=== PATIENT | female | born 1960 | race Caucasian/White ===

== ENCOUNTER → 2021-07-05 | Outpatient (CLI) | payer BC ==
[2021-07-05 14:47] VITALS: BP 148/94; PULSE 111; RESP 16; TEMP 98.7; BMI 41.1
--- NOTE | 2021-07-05 14:54 | P.HPBAR ---
Bariatric H&P - History & Physicial H&P Date: 07/05/21 History & Physicial: Visit/CC: Patient initial contact: Initial weight: Initial weight in pounds: Height: Initial BMI: Last weight: Current weight: Current weight in pounds: Current BMI: [place] body weight (based on NIH guidelines): Excess body weight loss: The patient is a 61 year-old F who presents for Bariatric Assessment. DATE OF SERVICE: 07/05/2021 REASON FOR CONSULTATION: Initial bariatric evaluation. HISTORY OF PRESENT ILLNESS: Sabina Kirkland is a 61-year-old female who comes with lifelong morbid obesity. She presents for the first time in consultation. She is looking into the sleeve. Her sister is at bedside who had the gastric bypass and reports family history of morbid obesity. She reports going through bariatric process in [place] in 2013. She was looking into the gastric band at that time but now has changed her mind. As a result of her morbid obesity, she has developed hypertensive heart disese and osteoarthritis. At height of 5 feet 8 inches, her ideal body weight is 163 pounds. Her highest weight is 270 pounds, body mass index 41.1 She comes in 270 pounds. Her body mass index is 41.1. She is 107 pounds overweight. PAST MEDICAL HISTORY: 1. Morbid obesity due to excess calories, BMI 41.1 2. Hypertensive heart disease 3. Osteoarthritis of the back 4. Depressive disorder 5. Hyperlipidemia 6. Iron deficiency 7. Gastroesophageal reflux disease 8. Neuropathy PAST SURGICAL HISTORY: 1. No abdominal surgeries HOME MEDICATIONS: Home Medications Medication Instructions Recorded Confirmed Amlodipine Besylate/Valsartan 1 each PO DAILY 07/05/21 07/26/21 [Amlodipine-Valsartan 10-160 mg] Bifidobacterium Infantis [Align] 4 mg PO DAILY 07/05/21 07/26/21 Cyclobenzaprine [Flexeril] 10 mg PO TID 07/05/21 07/26/21 DULoxetine HCL [Cymbalta] 60 mg PO DAILY 07/05/21 07/26/21 Esomeprazole Magnesium [NexIUM 20 mg PO DAILY 07/05/21 07/26/21 24Hr] Gabapentin 300 mg PO TID 07/05/21 07/26/21 Hydrochlorothiazide 12.5 mg PO DAILY 07/05/21 07/26/21 [hydroCHLOROthiazide] Ibuprofen [Advil] 200 mg PO Q8HR PRN 07/05/21 07/26/21 Nystatin 1 applic TOPICAL DAILY 07/05/21 07/26/21 Pravastatin Sodium [Pravachol] 20 mg PO DAILY 07/05/21 07/26/21 Ergocalciferol [Vitamin D2 (1250 50,000 unit PO WE 07/13/21 07/26/21 Mcg = 03824 Iu)] Ferrous Sulfate [Feosol] 325 mg PO DAILY 07/26/21 07/26/21 Vitamin B Complex 1 each PO DAILY 07/26/21 07/26/21 ALLERGIES: Allergies Allergy/AdvReac Type Severity Reaction Status Date / Time No Known Allergies Allergy Verified 07/26/21 15:16 SOCIAL HISTORY: Denies tobacco use. FAMILY HISTORY: No family history of ulcerative colitis disease or Crohn's disease. Family history of morbid obesity. No lupus in the family. No reports of stomach or esophageal cancer. She reports her grandmother had obesity. REVIEW OF ORGAN SYSTEMS: CONSTITUTIONAL: At height of 5 feet 8 inches, her ideal body weight is 163 pounds. Her highest weight is 270 pounds, body mass index 41.1 She comes in 270 pounds. Her body mass index is 41.1. She is 107 pounds overweight. HEENT: Denies any active troubles with vision or hearing. ENDOCRINE: Denies diabetes. Denies hypothyroidism. CARDIOVASCULAR: Denies past reports of palpitations or heart attacks or chest pain. Has hypertensive heart disease. Has hyperlipidemia. RESPIRATORY: Has daytime somnolence and snores. GASTROINTESTINAL: Denies any bright red blood per rectum. No diarrhea. No constipation. Has gastroesophageal reflux disease. GENITOURINARY: Denies bladder urgency. No recent blood in urine MUSCULOSKELETAL: Has lower back pain and joint pain. Denies history of bilateral lower extremity edema. Osteoarthritis of the lower back. NEURO: Has chronic migraines. No seizure disorders. PSYCH: Has depression. No suicidal ideation. RHEUMATOLOGIC: No lupus. No rheumatoid arthritis. HEMATOLOGIC: Denies any abnormal bleeding or bruising. Denies past history of DVTs. SKIN: No rash. No skin cancer. PHYSICAL EXAM: VITAL SIGNS: Height 5 foot 8 inches, weight 270 pounds. BMI 41.1 Vital Signs Temp 98.7 F 07/05/21 14:43 Pulse 111 H 07/05/21 14:43 Resp 16 07/05/21 14:43 BP 148/94 07/05/21 14:43 Pulse Ox GENERAL: Well-developed in no acute distress. HEENT: No scleral icterus. Extraocular movements grossly intact. Hears conversational speech. No nasal drainage. NECK: Supple without lymphadenopathy. CHEST: Nonlabored respirations with equal bilateral excursions. CARDIOVASCULAR: Tachycardia. Distal 2+ pulses. ABDOMEN: Obese, soft, nontender, nondistended. MUSCULOSKELETAL: No clubbing, cyanosis. NEURO: No focal or lateralizing signs. Cranial nerves 2 through 12 grossly within normal limits. PSYCH: Appropriate affect. Alert and oriented to person, place and time. SKIN: Good skin turgor. Well perfused. ASSESSMENT: 1. Morbid obesity due to excess calories, BMI 41.1 2. Hypertensive heart disease 3. Osteoarthritis of the back 4. Depressive disorder 5. Hyperlipidemia 6. Iron deficiency 7. Gastroesophageal reflux disease 8. Neuropathy PLAN: 1. Surgical options including a band, gastric bypass, sleeve gastrectomy were described in detail. Alternatives such as gastric balloon including duodenal switch were described. 2. The [place] bariatric surgical collaborative data and outcomes calculator were described with surgical options deferred. 3. Recommend a bariatric metabolic panel to evaluate for micro- including macronutrient deficiencies. 4. For history of daytime somnolence, recommend evaluation and treatment for sleep apnea. 5. Dietary surveillance and counseling was reviewed. Increased protein intake over 65 grams daily advised. 6. Will need cardiac risk assessment. 7. Recommend medical risk assessment. 8. Psych assessment per insurance guidelines. 9. Recommend upper endoscopy. 10. Recommend 12-lead EKG. 11. Recommend urine nicotine testing pre-op 12. Recommend urine drug screen Thank you for this consultation. Results - Labs 07/05/21 15:48 07/05/21 15:48 Bariatric Checklist Checklist: Plan: Checklist: EGD: 1. Hiatal hernia: 2. H. Pylori: HgbA1c: Vitamin D: Smoking: Primary care physician referral: Psychiatry clearance: Cardiology clearance: Sleep study: Diet journal: VTE risk score: VTE risk level: Rehab needs at discharge:
[2021-07-05 17:02] LABS: INR 0.9 (<1.2); Partial Thromboplastin Time 23.7 sec (22.0-30.0); Prothrombin Time 9.7 sec (9.0-12.0)
[2021-07-06 00:08] LABS: Chol/HDL Ratio 4.06 Ratio; LDL Cholesterol,Calculated 149.3 mg/dL (0.0-131.0); Prealbumin 20.7 mg/dL (18.0-42.0)
[2021-07-06 00:55] LABS: HCT 35.6 % (37.2-46.3); HGB 10.4 g/dL (12.0-15.0); MCH 24.4 pg (27.0-32.0); MCHC 29.2 g/dL (32.0-37.0); MCV 83.6 fL (80.0-97.0); Mean Platelet Volume 11.5 fL (9.5-12.2); NRBC Per 100 WBC 0 /100 WBCS (0.0-0.0); Platelet Count 508 X 10*3/uL (140-440); RBC 4.26 X 10*6/uL (4.10-5.20); RDW 17.5 % (11.5-14.5); WBC 10.21 X 10*3/uL (4.50-10.00)
[2021-07-06 02:28] LABS: Ferritin 8.1 ng/mL (10.0-291.0); Magnesium 2.2 mg/dL (1.5-2.4)
[2021-07-06 02:29] LABS: % Iron Saturation 6.04 (12.00-45.00); ALT 42 U/L (8-44); AST 27 U/L (13-35); African American GFR (CKD) 89.4 (60.0-200.0); Albumin 4.1 g/dL (3.8-4.9); Albumin/Globulin Ratio 1.62 (1.60-3.17); Alkaline Phosphatase 110 U/L (41-126); BUN/Creat Ratio 15.56 Ratio (12.00-20.00); Blood Urea Nitrogen 12.7 mg/dL (9.0-27.0); Calcium 9.4 mg/dL (8.7-10.3); Carbon Dioxide 23.1 mmol/L (20.0-27.5); Chloride 100 mmol/L (96-109); Globulin 2.5 g/dL (1.6-3.3); Glucose 106 mg/dL (70-110); Iron 28 ug/dL (50-170); Non-African American GFR(CKD) 77.2 (60.0-200.0); Phosphorus 3.4 mg/dL (2.4-5.1); Potassium 4.2 mmol/L (3.5-5.5); Sodium 140 mmol/L (135-145); Total Bilirubin <0.15 mg/dL (0.30-1.20); Total Iron Binding Capacity 470 ug/dL (228-460); Total Protein 6.6 g/dL (6.2-8.2)
[2021-07-06 12:58] LABS: Zinc, Serum 58 ug/dL (60-130)
[2021-07-07 08:32] LABS: Vitamin A 49 ug/dL (38-106)
[2021-07-07 14:34] LABS: Vit B1(Thiamine) 92 ug/L (38-122)
[2021-07-11 14:50] LABS: Selenium 160 mcg/L (63-160)
== END ==
LOC: BARWHC3 14:13
PROVIDERS: ATTEND Surgery Plastic and Reconstructive Surgery
DX: E66.01 Morbid (severe) obesity due to excess calories (principal); I11.9 Hypertensive heart disease without heart failure; M47.9 Spondylosis, unspecified; F32.A Depression, unspecified; E78.5 Hyperlipidemia, unspecified; E61.1 Iron deficiency; K21.9 Gastro-esophageal reflux disease without esophagitis; G62.9 Polyneuropathy, unspecified; Z68.41 Body mass index [BMI] 40.0-44.9, adult
CPT/HCPCS: 80053; 80061; 82306; 82525; 82607; 82728; 82746; 83036; 83540; 83550; 83735; 83970; 84100; 84134; 84255; 84425; 84443; 84590; 84630; 85027; 85610; 85730; 93005; 99203

== ENCOUNTER 2021-10-02 08:16 | Day surgery (SDC) | payer BC ==
[2021-09-28 15:03] VITALS: BMI 39.1
--- NOTE | 2021-10-02 07:40 | P.GSHP ---
History of Present Illness H&P Date: 10/02/21 CHIEF COMPLAINT: GERD and colon screen HISTORY OF PRESENT ILLNESS: The patient is a 61-year-old female who presents with gastroesophageal reflux disease and need for colon screen. Upper and lower endoscopy were offered for further evaluation and management. PAST MEDICAL HISTORY: Please see list. PAST SURGICAL HISTORY: Please see list. MEDICATIONS: Please see list. ALLERGIES: Please see list. SOCIAL HISTORY: No illicit drug use FAMILY HISTORY: No reports of Crohn disease or ulcerative colitis. REVIEW OF ORGAN SYSTEMS: CONSTITUTIONAL: No reports of fevers or chills. GI: Denies any blood in stools or constipation. PHYSICAL EXAM: VITAL SIGNS: Stable GENERAL: Well-developed pleasant in no acute distress. HEENT: No scleral icterus. Extraocular movements grossly intact. Moist buccal mucosa. NECK: Supple without lymphadenopathy. CHEST: Unlabored respirations. Equal bilateral excursions. CARDIOVASCULAR: Regular rate and rhythm. Distal 2+ pulses. ABDOMEN: Soft, nondistended. MUSCULOSKELETAL: No clubbing, cyanosis, or edema. ASSESSMENT: 1. Gastroesophageal reflux disease 2. Colon screen. PLAN: 1. Recommend proceeding with an upper and lower endoscopy Past Medical History Past Medical History: Fibromyalgia, GERD/Reflux, Hyperlipidemia, Hypertension, Osteoarthritis (OA) Additional Past Medical History / Comment(s): ANEMIA, History of Any Multi-Drug Resistant Organisms: None Reported Past Surgical History: Adenoidectomy, Cholecystectomy, Hysterectomy, Orthopedic Surgery, Tonsillectomy Additional Past Surgical History / Comment(s): RT SHOULDER surgery for bone spurs, RT KNEE arthroscopy, COLONOSCOPY Past Anesthesia/Blood Transfusion Reactions: Motion Sickness Smoking Status: Former smoker - Past Family History Mother Family Medical History: Cancer Additional Family Medical History / Comment(s): lung Medications and Allergies Home Medications Medication Instructions Recorded Confirmed Type Amlodipine Besylate/Valsartan 1 each PO DAILY 07/05/21 09/28/21 History [Amlodipine-Valsartan 10-160 mg] Cyclobenzaprine [Flexeril] 10 mg PO TID PRN 07/05/21 09/28/21 History DULoxetine HCL [Cymbalta] 60 mg PO DAILY 07/05/21 09/28/21 History Esomeprazole Magnesium [NexIUM 20 mg PO DAILY 07/05/21 09/28/21 History 24Hr] Gabapentin 300 mg PO TID 07/05/21 09/28/21 History Hydrochlorothiazide 12.5 mg PO DAILY PRN 07/05/21 09/28/21 History [hydroCHLOROthiazide] Ibuprofen [Advil] 200 mg PO Q8HR PRN 07/05/21 09/28/21 History Nystatin 1 applic TOPICAL DAILY PRN 07/05/21 09/28/21 History Pravastatin Sodium [Pravachol] 20 mg PO HS 07/05/21 09/28/21 History Ergocalciferol [Vitamin D2 (1250 50,000 unit PO WE 07/13/21 09/28/21 History Mcg = 47166 Iu)] Ferrous Sulfate [Feosol] 325 mg PO DAILY 07/26/21 09/28/21 History Vitamin B Complex 1 each PO DAILY 07/26/21 09/28/21 History Allergies Allergy/AdvReac Type Severity Reaction Status Date / Time No Known Allergies Allergy Verified 09/28/21 14:49
[2021-10-02 08:37] VITALS: TEMP 96.5
[2021-10-02] MEDS ORDERED: LACTATED RINGERS 1,000 ML IV ONE (08:50)
[2021-10-02] MEDS ORDERED: LIDOCAINE 1% (10MG/ML) FOR IV START INTRADERMA ONE (08:51)
[2021-10-02] MEDS ORDERED: LACTATED RINGERS 1,000 ML IV SCH (08:51)
[2021-10-02] MEDS ORDERED: PROPOFOL 10 MG/ML 20 ML VIAL IV ONE (09:09)
[2021-10-02] MEDS ORDERED: MIDAZOLAM 2 MG/2 ML VIAL ONE (09:09)
--- NOTE | 2021-10-02 09:26 | P.PCN ---
Date of Procedure: 10/02/21 Description of Procedure: PREOPERATIVE DIAGNOSIS: Gastroesophageal reflux disease. Morbid obesity. POSTOPERATIVE DIAGNOSIS: Gastroesophageal reflux disease with esophagitis Morbid obesity. Gastritis. Diaphragmatic hiatal hernia OPERATION: Esophagogastroduodenoscopy with biopsies along antrum, GE junction, duodenum SURGEON: Dariela Manzanares MD ANESTHESIA: MAC. INDICATIONS: The patient is a 61-year-old female who presents with reflux disease. Benefits and risks of the procedure were described. Informed consent was obtained. DESCRIPTION: The patient was brought into the endoscopy suite and laid in the left lateral decubitus position. An Olympus gastroscope was passed along the posterior oropha rynx down to the distal esophagus where the squamocolumnar junction was encountered at 36 cm from the incisors. The stomach was entered and no bile reflux was found. Additional findings are listed below. Biopsies with cold forceps were obtained of the antrum. The first through third portion of the duodenum was examined. Retroflexion of the scope confirmed Hill grade 3 lower esophageal valve. The squamocolumnar junction demonstrated LA grade C erosive esophagitis. The stomach was desufflated. The patient tolerated the procedure well. FINDINGS: Squamocolumnar junction 36 cm from the incisors. Diaphragmatic hiatus at 38 cm. Hiatal hernia, 2 cm Hill grade 3 lower esophageal valve. LA grade C erosive esophagitis with biopsies obtained at GE junction Cold biopsies obtained duodenum for celiac disease Chronic gastritis with biopsies obtained RECOMMENDATIONS: Upper endoscopy as needed.
--- NOTE | 2021-10-02 09:46 | P.PCN ---
Date of Procedure: 10/02/21 Description of Procedure: PREOPERATIVE DIAGNOSIS: Colonoscopy screening POSTOPERATIVE DIAGNOSIS: Tubular adenoma sigmoid colon Sigmoid diverticulosis, moderate to severe Internal hemorrhoids, grade 2 OPERATION: Colonoscopy to the ileocecal valve and appendiceal orifice, cecum Colonoscopy with cold forceps biopsy SURGEON: Dariela Manzanares MD. ANESTHESIA: MAC. INDICATIONS: The patient is an 61-year-old female who presents for colonoscopy screening. Benefits and risks were described and informed consent was obtained. DESCRIPTION OF PROCEDURE: The patient had undergone Sutab prep. The patient had been brought into the operating room and laid in the left lateral decubitus position. After adequate intravenous sedation, the rectum was examined with 2% lidocaine jelly. External hemorrhoids were encountered. The rectal tone was within normal limits. No lesions were palpated in the rectal vault. An Olympus colonoscope was advanced until the cecum, ileocecal valve and appendiceal orifice were clearly viewed. The prep was good. Moderate to severe sigmoid diverticulosis was encountered. Colonic polyps were found and removed. No evidence of focal colitis was found. Retroflexion of the scope demonstrated grade 2 internal hemorrhoids without active bleeding or inflammation. The colon was desufflated. The patient had tolerated the procedure well. Withdrawal time was over 6 minutes. FINDINGS: Aronchick preparation quality scale 2 (1-5) Internal hemorrhoids, grade 2 External hemorrhoids, grade 2. No arteriovenous malformations. Sigmoid diverticulosis, moderate to severe Removal of 2 polyps: - Cold forceps biopsy at 15 cm from the anal verge 2, 3 to 4 mm polyp, sigmoid colon No focal colitis. RECOMMENDATIONS: Repeat colonoscopy in 3 years, 2024 Increase fiber intake 25 g daily Plan - Discharge Summary New Discharge Prescriptions: Continue Pravastatin Sodium [Pravachol] 20 mg PO HS Ibuprofen [Advil] 200 mg PO Q8HR PRN PRN Reason: Pain Nystatin 1 applic TOPICAL DAILY PRN PRN Reason: Rash DULoxetine HCL [Cymbalta] 60 mg PO DAILY Amlodipine Besylate/Valsartan [Amlodipine-Valsartan 10-160 mg] 1 each PO DAILY Ergocalciferol [Vitamin D2 (1250 Mcg = 83318 Iu)] 50,000 unit PO WE Ferrous Sulfate [Iron (65 MG Elemental)] 325 mg PO DAILY Vitamin B Complex 1 each PO DAILY Gabapentin 300 mg PO TID Cyclobenzaprine [Flexeril] 10 mg PO TID PRN PRN Reason: Pain Hydrochlorothiazide [hydroCHLOROthiazide] 12.5 mg PO DAILY PRN PRN Reason: Edema Esomeprazole Magnesium [NexIUM 24Hr] 20 mg PO DAILY Discharge Medication List Amlodipine Besylate/Valsartan [Amlodipine-Valsartan 10-160 mg] 1 each PO DAILY 07/05/21 [History] Cyclobenzaprine [Flexeril] 10 mg PO TID PRN 07/05/21 [History] DULoxetine HCL [Cymbalta] 60 mg PO DAILY 07/05/21 [History] Esomeprazole Magnesium [NexIUM 24Hr] 20 mg PO DAILY 07/05/21 [History] Gabapentin 300 mg PO TID 07/05/21 [History] Hydrochlorothiazide [hydroCHLOROthiazide] 12.5 mg PO DAILY PRN 07/05/21 [History] Ibuprofen [Advil] 200 mg PO Q8HR PRN 07/05/21 [History] Nystatin 1 applic TOPICAL DAILY PRN 07/05/21 [History] Pravastatin Sodium [Pravachol] 20 mg PO HS 07/05/21 [History] Ergocalciferol [Vitamin D2 (1250 Mcg = 69749 Iu)] 50,000 unit PO WE 07/13/21 [History] Ferrous Sulfate [Iron (65 MG Elemental)] 325 mg PO DAILY 07/26/21 [History] Vitamin B Complex 1 each PO DAILY 07/26/21 [History] [facility] [facility] [place] [facility] [place] Patient Instructions/Handouts: Diverticulosis Diet (GEN), Diverticulosis (DC), Colorectal Polyps (GEN) Activity/Diet/Wound Care/Special Instructions: Baby colonoscopy in 3 years, 2024 Discharge Disposition: HOME SELF-CARE
[2021-10-02 09:50] VITALS: RESP 16
[2021-10-02 10:01] VITALS: BP 131/85; PULSE 82
== END 2021-10-02 10:42 | disposition home or self-care (01) ==
LOC: ORWHC2ENDO 08:16
PROVIDERS: ATTEND Surgery Plastic and Reconstructive Surgery
DX: Z12.11 Encounter for screening for malignant neoplasm of colon (principal); K21.00 Gastro-esophageal reflux disease with esophagitis, without bleeding; D12.5 Benign neoplasm of sigmoid colon; K29.50 Unspecified chronic gastritis without bleeding; K44.9 Diaphragmatic hernia without obstruction or gangrene; K64.1 Second degree hemorrhoids; K57.30 Diverticulosis of large intestine without perforation or abscess without bleeding; E66.01 Morbid (severe) obesity due to excess calories; E78.5 Hyperlipidemia, unspecified; I10 Essential (primary) hypertension; M79.7 Fibromyalgia; Z87.891 Personal history of nicotine dependence; Z90.49 Acquired absence of other specified parts of digestive tract; K64.8 Other hemorrhoids
CPT/HCPCS: 45380; 43239; 88305; J2250; J2704

== ENCOUNTER → 2021-10-30 | Outpatient (CLI) | payer BC ==
[2021-10-30 23:28] LABS: ALT 46 U/L (8-44); AST 27 U/L (13-35); African American GFR (CKD) 107.6 (60.0-200.0); Alkaline Phosphatase 106 U/L (41-126); BUN/Creat Ratio 18.29 Ratio (12.00-20.00); Blood Urea Nitrogen 12.8 mg/dL (9.0-27.0); Calcium 9.3 mg/dL (8.7-10.3); Chloride 106 mmol/L (96-109); Globulin 2.5 g/dL (1.6-3.3); Glucose 87 mg/dL (70-110); Non-African American GFR(CKD) 92.9 (60.0-200.0); Potassium 4.1 mmol/L (3.5-5.5); Sodium 141 mmol/L (135-145); Total Bilirubin <0.15 mg/dL (0.30-1.20); Total Protein 6.5 g/dL (6.2-8.2)
[2021-10-31 00:56] LABS: Basophils # (A) 0.06 X 10*3/uL (0.00-0.10); Basophils % (A) 0.7 %; Eosinophils # (A) 0.24 X 10*3/uL (0.04-0.35); Eosinophils % (A) 2.8 %; HCT 38.9 % (37.2-46.3); HGB 12.3 g/dL (12.0-15.0); Immature Grans, Automated 0.4 %; Lymphocytes # (A) 2.42 X 10*3/uL (0.90-5.00); Lymphocytes % (A) 28.7 %; MCHC 31.6 g/dL (32.0-37.0); MCV 88.4 fL (80.0-97.0); Monocytes # (A) 0.48 X 10*3/uL (0.20-1.00); Monocytes % (A) 5.7 %; NRBC Per 100 WBC 0 /100 WBCS (0.0-0.0); Neutrophils % (A) 61.7 %; Platelet Count 400 X 10*3/uL (140-440); RDW 18.2 % (11.5-14.5); WBC 8.43 X 10*3/uL (4.50-10.00)
== END | disposition home or self-care (01) ==
LOC: LABPAT 14:40
PROVIDERS: ATTEND Surgery Plastic and Reconstructive Surgery
DX: Z01.812 Encounter for preprocedural laboratory examination (principal)
CPT/HCPCS: 80053; 85025

== ENCOUNTER 2021-11-20 09:24 | Observation (INO) | payer BC ==
[~2021-11-20 09:24] MED LIST: CHLORHEXIDINE GLUCONATE 15 ML CUP MUCOUS MEM PRN; DEXAMETHASONE SOD PHOSPHATE 4 MG/ML 1 ML VIAL IV ONE; HYDROmorphone 0.5 MG/0.5 ML SYRINGE IVP PRN; LACTATED RINGERS 1,000 ML IV SCH; LIDOCAINE 1% (10MG/ML) FOR IV START INTRADERMA PRN; ONDANSETRON 4 MG/2 ML VIAL IVP ONE; PANTOPRAZOLE 40 MG/10 ML VIAL IVP PRN; SCOPOLAMINE 1 MG/72 HR PATCH TRANSDERM ONE; ceFAZolin 3 GM in SODIUM CHLORIDE 0.9% 100 ML IVPB PRN
[2021-11-20] MEDS ORDERED: SCOPOLAMINE 1 MG/72 HR PATCH TRANSDERM ONE (10:19)
--- NOTE | 2021-11-20 10:31 | P.GSHP ---
History of Present Illness H&P Date: 11/20/21 CHIEF COMPLAINT: Paraesophageal hiatal hernia with gastroesophageal reflux disease. HISTORY OF PRESENT ILLNESS: The patient is a 61-year-old female who presents with paraesophageal hiatal hernia. She has completed upper endoscopy workup. Now she presents for surgical intervention. PAST MEDICAL HISTORY: Please see list. PAST SURGICAL HISTORY: Please see list. MEDICATIONS: Please see list. ALLERGIES: Please see list. SOCIAL HISTORY: No illicit drug use FAMILY HISTORY: No reports of Crohn disease or ulcerative colitis. REVIEW OF ORGAN SYSTEMS: CONSTITUTIONAL: No reports of fevers or chills. GI: Denies any blood in stools or constipation. PHYSICAL EXAM: VITAL SIGNS: Stable GENERAL: Well-developed pleasant and in no acute distress. HEENT: No scleral icterus. Extraocular movements grossly intact. Moist buccal mucosa. NECK: Supple without lymphadenopathy. CHEST: Unlabored respirations. Equal bilateral excursions. CARDIOVASCULAR: Regular rate and rhythm. Distal 2+ pulses. ABDOMEN: Soft, nondistended. No peritoneal signs. MUSCULOSKELETAL: No clubbing, cyanosis, or edema. SKIN: Well-perfused. Good skin turgor. ASSESSMENT: 1. Diaphragmatic paraesophageal hiatal hernia with severe gastroesophageal reflux disease. PLAN: 1. Recommend proceeding with a robotic paraesophageal hiatal hernia with possible mesh. 2. Benefits and risks of surgical intervention was discussed including possibility of open technique. 3. Inpatient hospitalization recommended of 2 nights 4. DVT prophylaxis. 5. Antibiotic prophylaxis. 6. She has also completed a very low caloric high-protein diet to address underlying hepatomegaly. Past Medical History Past Medical History: Fibromyalgia, GERD/Reflux, Hyperlipidemia, Hypertension, Osteoarthritis (OA) Additional Past Medical History / Comment(s): ANEMIA. History of Any Multi-Drug Resistant Organisms: None Reported Past Surgical History: Adenoidectomy, Cholecystectomy, Hysterectomy, Orthopedic Surgery, Tonsillectomy Additional Past Surgical History / Comment(s): Right shoulder surgery for bone spurs, right knee arthroscopy, colonoscopies, EGD. Past Anesthesia/Blood Transfusion Reactions: Motion Sickness Past Psychological History: No Psychological Hx Reported Smoking Status: Former smoker Past Alcohol Use History: Occasional Additional Past Alcohol Use History / Comment(s): Quit smoking in 2016, started smoking at age 13. Past Drug Use History: Marijuana Additional Drug Use History / Comment(s): Occasional cbd gummies. Aware no use 24 hrs prior to procedure. - Past Family History Mother Family Medical History: Cancer Additional Family Medical History / Comment(s): Lung cancer. Medications and Allergies Home Medications Medication Instructions Recorded Confirmed Type Amlodipine Besylate/Valsartan 1 each PO QAM 07/05/21 11/20/21 History [Amlodipine-Valsartan 10-160 mg] Cyclobenzaprine [Flexeril] 10 mg PO TID PRN 07/05/21 11/20/21 History DULoxetine HCL [Cymbalta] 60 mg PO QAM 07/05/21 11/20/21 History Gabapentin 300 mg PO TID 07/05/21 11/20/21 History Ibuprofen [Advil] 200 mg PO Q8HR PRN 07/05/21 11/15/21 History Nystatin 1 applic TOPICAL DAILY PRN 07/05/21 11/20/21 History Pravastatin Sodium [Pravachol] 20 mg PO HS 07/05/21 11/20/21 History hydroCHLOROthiazide 12.5 mg PO DAILY PRN 07/05/21 11/20/21 History Ergocalciferol [Vitamin D2 (1250 50,000 unit PO WE 07/13/21 11/15/21 History Mcg = 40287 Iu)] Ferrous Sulfate [Iron (65 MG 325 mg PO DAILY 07/26/21 11/15/21 History Elemental)] Vitamin B Complex 1 each PO DAILY 07/26/21 11/15/21 History Prevacid (Unknown Dose) 1 tab PO DAILY 11/15/21 11/20/21 History Allergies Allergy/AdvReac Type Severity Reaction Status Date / Time No Known Allergies Allergy Verified 11/15/21 09:54 Surgical - Exam Vital Signs Pulse Resp BP Pulse Ox 85 16 131/81 97 11/20/21 09:49 11/20/21 09:49 11/20/21 09:49 11/20/21 09:49
[2021-11-20] MEDS ORDERED: SCOPOLAMINE 1 MG/72 HR PATCH TRANSDERM PRN (10:33)
[2021-11-20] MEDS ORDERED: ACETAMINOPHEN TAB 500 MG TAB PO PRN (10:33)
[2021-11-20] MEDS ORDERED: CHLORHEXIDINE GLUCONATE 15 ML CUP MUCOUS MEM ONE (10:37)
[2021-11-20] MEDS ORDERED: ACETAMINOPHEN TAB 500 MG TAB ONE (10:37)
[2021-11-20] MEDS ORDERED: HEPARIN SODIUM,PORCINE/PF 5,000 UNIT/0.5 ML SYRINGE SQ STA (10:45)
[2021-11-20] MEDS ORDERED: KETOROLAC 15 MG/ML 1 ML VIAL ONE (11:42)
[2021-11-20] MEDS ORDERED: ePHEDrine 50 MG/ML 1 ML VIAL ONE (11:42)
[2021-11-20] MEDS ORDERED: GLYCOPYRROLATE 0.2 MG/ML 2 ML VIAL ONE (11:42)
[2021-11-20] MEDS ORDERED: LIDOCAINE 2% INJ 20 MG/ML (2 ML VIAL) ONE (11:42)
[2021-11-20] MEDS ORDERED: MIDAZOLAM 2 MG/2 ML VIAL ONE (11:42)
[2021-11-20] MEDS ORDERED: ROCURONIUM 10 MG/ML (5 ML VIAL) IV ONE (11:42)
[2021-11-20] MEDS ORDERED: PROPOFOL 10 MG/ML 20 ML VIAL IV ONE (11:42)
[2021-11-20] MEDS ORDERED: SUCCINYLCHOLINE CHLORIDE 200 MG/10 ML VIAL IV ONE (11:42)
[2021-11-20] MEDS ORDERED: PHENYLEPHRINE-0.9% NACL SYG 1,000 MCG/10 ML SYRINGE ONE (11:42)
[2021-11-20] MEDS ORDERED: NEOSTIGMINE 1 MG/ML 10 ML VIAL ONE (11:42)
[2021-11-20] MEDS ORDERED: fentaNYL (PF) 50 MCG/ML 2 ML AMP ONE (11:42)
[2021-11-20] MEDS ORDERED: BUPIVACAIN-EPI 0.25%-1:200,000 30 ML VIAL SQ ONE (11:47)
[2021-11-20] MEDS ORDERED: LACTATED RINGERS 1,000 ML IV ONE (12:43)
[2021-11-20] MEDS ORDERED: NALOXONE 0.4 MG/ML 1 ML VIAL IV PRN (13:46)
[2021-11-20] MEDS ORDERED: diphenhydrAMINE 50 MG/ML 1 ML VIAL IVP PRN (13:46)
[2021-11-20] MEDS ORDERED: HYDROmorphone 1 MG/ML 1 ML SYRINGE IVP PRN (13:46)
[2021-11-20] MEDS ORDERED: HYOSCYAMINE ORAL DROPS 1.875 MG/15 ML BOTTLE PO PRN (13:46)
[2021-11-20] MEDS ORDERED: ONDANSETRON 4 MG/2 ML VIAL IVP PRN (13:46)
[2021-11-20] MEDS ORDERED: ACETAMINOPHEN IV (For NPO) 1,000 MG in EMPTY BAG 1 BAG IVPB ONE (13:46)
[2021-11-20] MEDS ORDERED: DEXAMETHASONE SOD PHOSPHATE 4 MG/ML 1 ML VIAL IVP PRN (13:50)
--- NOTE | 2021-11-20 13:55 | P.OP ---
Date of Procedure: 11/20/21 Description of Procedure: SURGEON: SOMMER GAMING MD PREOPERATIVE DIAGNOSES: 1. Symptomatic paraesophageal diaphragmatic hiatal hernia. 2. Gastroesophageal reflux disease. 3. Morbid obesity due to excess calories, BMI 39.4 4. Fibromyalgia 5. Hypertensive heart disease 6. Depressive disorder 7. Iron deficiency anemia 8. Hyperlipidemia 9. Motion sickness POSTOPERATIVE DIAGNOSES: 1. Paraesophageal midline diaphragmatic hernia, 4 cm, with incarceration 2. Gastroesophageal reflux disease. 3. Peritoneal adhesions left upper quadrant, omentum to abdominal wall 4. Fibromyalgia 5. Hypertensive heart disease 6. Depressive disorder 7. Iron deficiency anemia 8. Hyperlipidemia 9. Motion sickness 10. Morbid obesity due to excess calories, BMI 39.4 OPERATION: 1. Robotic-assisted da Judy Xi laparoscopic repair of incarcerated paraesophageal hiatal hernia, 4 x 3 cm, with [place] Biopatch A 8 x 8 cm. 2. Intraoperative esophagogastroduodenoscopy 3. Placement of 56-Yoruba bougie ANESTHESIA: General with local anesthetic. ESTIMATED BLOOD LOSS: 5 mL SPECIMENS REMOVED: None COMPLICATIONS: None. Condition: stable Disposition: floor FINDINGS: 1. Midline incarcerated paraesophageal hiatal hernia 4 x 3 cm 2. Intraoperative upper endoscopy confirms complete closure of hiatal hernia from Hill grade 3 to Hill grade 1 3. Intraesophageal length 3 cm 4. Omentum to abdominal wall adhesions, left upper quadrant 5. Incarcerated paraesophageal fat reduced into the abdomen INDICATIONS: The patient is a 61-year-old female who presents with gastroesophageal reflux disease poorly controlled despite medications, and a symptomatic diaphragmatic hiatal hernia. Preoperative workup including upper endoscopy demonstrated paraesophageal hiatal hernia. Given the severity of symptoms, the patient had elected for surgical intervention. Benefits and risks including bleeding, infection, recurrence, dysphagia, injury to the lung, need for further surgery was described at length. Informed consent was obtained. DESCRIPTION: The patient was brought into the operating room and placed in supine position. Preoperatively the patient had received heparin subcutaneously for DVT prophylaxis. After general induction, the abdomen was prepped and draped in standard sterile fashion. The patient had previously voided prior to coming to the operating room. Ioban draping was placed along the abdomen. A timeout protocol was confirmed with the surgical team, for which the patient's name, procedure to be performed including DVT prophylaxis with bilateral SCDs, and preoperative antibiotics were also confirmed. A robotic da Judy Xi system was prepped and primed. At 12 cm from the xiphoid to just below the umbilicus, proposed port sites were marked with indelible marker along the left axillary line, left mid-clavicular line with each ports were marked 10 cm from each other. A 5 mm 0 degrees laparoscopic trocar entry was performed along the left upper quadrant. The abdomen was insufflated to 15 mmHg pressure was tolerated well. Diagnostic laparoscopy demonstrated no injury to bowel, viscera, or mesentery. No injury had occurred to the small bowel or viscera. The liver was smooth consistent with two-week high-protein low-carb diet. Previous trochar sites from cholecystectomy were used. Next, one 8 mm robotic port was placed along the right upper abdomen. An 8-mm port was were placed along the right lateral lateral abdominal wall. The camera 8-mm port was maintained along the epigastrium. Another 12 mm port was placed along the left upper abdominal wall after exchanging the 5 mm port. Please note that the ports were placed at least 20 cm away from the target anatomy. Care was taken to check that each robotic arm were safely away from collision with the bed or the patient. At the epigastrium, a medium sized Darci liver retractor was placed under direct visualization with the Iron Clinical Analyst placed under the right shoulder of the patient. All robotic arms were used. The patient was repositioned in reverse Trendelenburg position at 21-degrees after lowering the bed. The robot was docked above the right side of the patient. Using a grasper for arm 3, a grasper for arm 1, including vessel sealer for arm 2, the robotic system was docked and primed as described. Instruments were interchanged by the hotel administrative assistant. I had sat at the console. The gastrohepatic ligament was cleaved using a vessel sealer. Next, the phrenoesophageal ligament was mobilized and the distal esophagus was mobilized circumferentially. The left and right crura was identified. Circumferentially, the hernia sac was excised and brought into the peritoneal cavity. Moderate dissection into the mediastinum was performed to release the esophagus into the abdominal cavity. The paraesophageal hiatal hernia sac was also incised and divided from the es ophagus. Care was taken to avoid any gastrotomy. The measured defect was consistent with 4 cm axial length and 3 cm in width. After dissection, the distal esophagus of 3 cm was brought into the abdominal cavity. Once the hiatus and crura was dissected, 2-0 VLOC nonabsorbable suture was placed to reapproximate the diaphragmatic hiatus posteriorly. To buttress the repair, a [place] Biopatch A was prepared along the back table and cut in half of a resendiz-hole fashion as to reinforce the repair as an underlay. The mesh was placed along the crural repair and tagged using horizontal mattress sutures using 2-0 VLOC. I went to the head of the bed to perform intraoperative esophagogastroduodenoscopy and placement of a 56Fr bougie. The bougie was passed along the posterior oropharynx into the stomach to address pre-existing esophageal dysmotility for 2 minutes then removed. An Olympus gastroscope was passed through posterior oropharynx. Retroflexion of the scope confirmed a Hill grade 1 lower esophageal valve. The stomach had been desufflated. No evidence of leaks were found of the esophagus or stomach. The GI tract with desufflated This concluded the endoscopic portion of the case. The robot was undocked from the patient. I re-scrubbed into the case. All instruments and pneumoperitoneum and specimens were evacuated from the abdominal cavity. Incisions were reapproximated using 4-0 Monocryl in an interrupted subcuticular fashion. Liquid glue was applied to the skin. Local anesthetic was infiltrated in all wounds for postop analgesia. At the end of the procedure, needle, sponge, and instrument count was verified correct by the surgical instrument maker. The patient had tolerated the procedure well and was taken to the postanesthesia unit in stable condition.
[2021-11-20] MEDS ORDERED: 0.9% NACL WITH KCL 20 MEQ/L 1,000 ML IV SCH (14:00)
[2021-11-20] MEDS ORDERED: HYDROmorphone 0.5 MG/0.5 ML SYRINGE IVP ONE ×2 (14:06→14:25)
[2021-11-20 15:56] VITALS: RESP 16
[2021-11-20] MEDS ORDERED: DEXAMETHASONE SOD PHOSPHATE 10 MG/ML 1 ML VIAL IVP ONE (16:00)
[2021-11-20] MEDS: METOCLOPRAMIDE 5 MG/ML 2 ML VIAL IVP SCH (18:11)
[2021-11-20] MEDS: SIMETHICONE 40 MG/0.6 ML DROPS 2,000 MG/30 ML BOTTLE PO SCH (18:11)
[2021-11-20] MEDS: KETOROLAC 15 MG/ML 1 ML VIAL IVP SCH (18:11)
[2021-11-20] MEDS ORDERED: ceFAZolin 3 GM in SODIUM CHLORIDE 0.9% 100 ML IVPB SCH (20:00)
[2021-11-20] MEDS ORDERED: hydroCHLOROthiazide 12.5 MG CAP PO PRN (20:26)
[2021-11-20] MEDS ORDERED: CYCLOBENZAPRINE 10 MG TAB PO PRN (20:26)
[2021-11-20] MEDS: SODIUM CHLORIDE 0.9% 1,000 ML IV SCH (21:00)
[2021-11-20] MEDS: PANTOPRAZOLE 40 MG/10 ML VIAL IV SCH (21:00)
[2021-11-20] MEDS: GABAPENTIN 300 MG CAP PO SCH (21:14)
[2021-11-21] MEDS: DEXAMETHASONE SOD PHOSPHATE 4 MG/ML 1 ML VIAL IVP SCH ×3 (00:43→13:13)
[2021-11-21] MEDS: METOCLOPRAMIDE 5 MG/ML 2 ML VIAL IVP SCH ×3 (00:44→13:15)
[2021-11-21] MEDS: KETOROLAC 15 MG/ML 1 ML VIAL IVP SCH ×3 (00:44→13:17)
[2021-11-21] MEDS: SIMETHICONE 40 MG/0.6 ML DROPS 2,000 MG/30 ML BOTTLE PO SCH ×3 (00:45→13:21)
[2021-11-21] MEDS: SODIUM CHLORIDE 0.9% 1,000 ML IV SCH (06:17)
[2021-11-21] MEDS ORDERED: 0.9% NACL WITH KCL 20 MEQ/L 1,000 ML IV SCH (08:00)
[2021-11-21 08:49] LABS: Basophils # (A) 0.01 X 10*3/uL (0.00-0.10); Basophils % (A) 0.1 %; Eosinophils # (A) 0 X 10*3/uL (0.04-0.35); Eosinophils % (A) 0 %; HCT 38.2 % (37.2-46.3); Immature Grans, Automated 0.7 %; Lymphocytes # (A) 1.18 X 10*3/uL (0.90-5.00); Lymphocytes % (A) 9.4 %; MCH 28.2 pg (27.0-32.0); MCHC 31.4 g/dL (32.0-37.0); MCV 89.7 fL (80.0-97.0); Mean Platelet Volume 12.1 fL (9.5-12.2); Monocytes # (A) 0.18 X 10*3/uL (0.20-1.00); Monocytes % (A) 1.4 %; NRBC Per 100 WBC 0 /100 WBCS (0.0-0.0); Neutrophils # (A) 11.03 X 10*3/uL (1.80-7.70); Neutrophils % (A) 88.4 %; Platelet Count 383 X 10*3/uL (140-440); RBC 4.26 X 10*6/uL (4.10-5.20); RDW 15.7 % (11.5-14.5); WBC 12.49 X 10*3/uL (4.50-10.00)
[2021-11-21] MEDS ORDERED: ENOXAPARIN 40 MG/0.4 ML SYRINGE SQ SCH (09:00)
[2021-11-21] MEDS ORDERED: amLODIPine 10 MG TAB PO SCH (09:00)
[2021-11-21] MEDS ORDERED: VALSARTAN 160 MG TAB PO SCH (09:00)
[2021-11-21 09:07] LABS: African American GFR (CKD) 107.6 (60.0-200.0); Calcium 8.9 mg/dL (8.7-10.3); Non-African American GFR(CKD) 92.9 (60.0-200.0); Phosphorus 3.3 mg/dL (2.4-5.1); Potassium 4.5 mmol/L (3.5-5.5)
[2021-11-21] MEDS: GABAPENTIN 300 MG CAP PO SCH (09:51)
[2021-11-21] MEDS: PANTOPRAZOLE 40 MG/10 ML VIAL IV SCH (09:51)
--- NOTE | 2021-11-21 10:24 | FL ---
EXAMINATION TYPE: FL esophagus cervic/pharynx DATE OF EXAM: 11/21/2021 HISTORY: Post hiatal hernia repair. COMPARISON: NONE TECHNIQUE: A double contrast esophagram is performed utilizing air and barium. A total of 35 second s of fluoroscopic time was utilized during procedure and 15 images obtained. FINDINGS: The esophagus shows normal motility and emptying into the stomach. No evidence of hiatal hernia or s tricture noted. No extravasation of contrast identified. No significant gastroesophageal reflux was s een during real time performance of this study. IMPRESSION: No Evidence of extravasation of contrast.
[2021-11-21 12:56] VITALS: BMI 39.4
[2021-11-21 13:11] VITALS: BP 100/64; PULSE 82; TEMP 97.6
--- NOTE | 2021-11-21 13:47 | P.DS ---
Providers Date of admission: 11/21/21 01:47 Expected date of discharge: 11/21/21 Attending physician: Dariela Manzanares Primary care physician: Stated None Hospital Course: Discharge diagnosis 1. Paraesophageal midline diaphragmatic hernia, 4 cm, with incarceration 2. Gastroesophageal reflux disease. 3. Peritoneal adhesions left upper quadrant, omentum to abdominal wall 4. Fibromyalgia 5. Hypertensive heart disease 6. Depressive disorder 7. Iron deficiency anemia 8. Hyperlipidemia 9. Motion sickness 10. Morbid obesity due to excess calories, BMI 39.4 Hospital course The patient is a 61-year-old female who presents with gastroesophageal reflux disease poorly controlled despite medications, and a symptomatic diaphragmatic hiatal hernia. Preoperative workup includingupper endoscopy demonstrated paraesophageal hiatal hernia. Patient is status post Robotic-assisted da Judy Xi laparoscopic repair of incarcerated paraesophageal hiatal hernia with [place] Biopatch. Patient tolerated surgery well. Her pain is controlled. Upper GI shows no evidence of extravasation of contrast. She is tolerating diet. She is up and ambulating. She is having flatus. Afebrile. She is stable for discharge. Physician Budget And Policy Analyst note has been reviewed by physician. Signing provider agrees with the documented findings, assessment, and plan of care. CHIEF COMPLAINT: Gastroesophageal reflux disease HISTORY OF PRESENT ILLNESS: The patient is a 61-year-old female status post hiatal hernia repair for incarcerated paraesophageal hiatal hernia with gastroesophageal reflux disease. She reports no further reflux disease. No r eports of moderate abdominal pain. ROS: No reports of nausea and vomiting. No bowel movements. No fevers or chills. No new chest pain. No productive sputum PHYSICAL EXAM: VITAL SIGNS: Reviewed CONSTITUTIONAL: Well developed and in no acute distress. EYES: Conjuctivae without sclera icterus. Extraocular movements grossly intact. HEAD, EARS, NOSE, THROAT: Moist buccal mucosa. Head is atraumatic, normocephalic. Hears conversational speech. No nasal drainage. RESPIRATORY: Non-labored respirations and equal bilateral excursions. CARDIOVASCULAR: Palpable 2+ radial pulses. ABDOMEN: Incisions clean dry and intact. MUSCULOSKELETAL: No gross deformity of the lower extremities noted. No clubbing. No cyanosis. SKIN: Good skin turgor. Well perfused. NEUROLOGIC: Cranial nerves II through XII grossly intact. No focal or lateralizing signs. PSYCH: Appropriate affect. Alert and oriented to person, place and time. CLINICAL LABS: Reviewed. Labs reviewed. Electrolytes within normal limits. STUDIES: Esophagram reviewed demonstrating no hiatal hernia and no reflux postoperatively. PLAN: 1. Postoperative diet with bariatric diet advised 2. Follow-up in the bariatric center in 3 days 3. Discontinue antacids Vital Signs Temp 97.6 F 11/21/21 13:00 Pulse 82 11/21/21 13:00 Resp 16 11/21/21 13:00 BP 100/64 11/21/21 13:00 Pulse Ox 95 11/21/21 13:46 FiO2 Intake & Output 11/21/21 11/21/21 11/22/21 06:59 18:59 06:59 Weight 121 kg Other: Voiding Method Toilet # Voids 3 Laboratory Last Values WBC 12.49 X 10*3/uL (4.50-10.00) H 11/21/21 05:47 RBC 4.26 X 10*6/uL (4.10-5.20) 11/21/21 05:47 Hgb 12.0 g/dL (12.0-15.0) 11/21/21 05:47 Hct 38.2 % (37.2-46.3) 11/21/21 05:47 MCV 89.7 fL (80.0-97.0) 11/21/21 05:47 MCH 28.2 pg (27.0-32.0) 11/21/21 05:47 MCHC 31.4 g/dL (32.0-37.0) L 11/21/21 05:47 RDW 15.7 % (11.5-14.5) H 11/21/21 05:47 Plt Count 383 X 10*3/uL (140-440) 11/21/21 05:47 MPV 12.1 fL (9.5-12.2) 11/21/21 05:47 Immature Gran % (Auto) 0.7 % 11/21/21 05:47 Absolute Nucleated RBC 0 X 10*3/uL (0.00-0.00) 11/21/21 05:47 Neutrophils % 88.4 % 11/21/21 05:47 Lymphocytes % 9.4 % 11/21/21 05:47 Monocytes % 1.4 % 11/21/21 05:47 Eosinophils % 0 % 11/21/21 05:47 Basophils % 0.1 % 11/21/21 05:47 Immature Gran # 0.09 X 10*3/uL (0.00-0.04) H 11/21/21 05:47 Neutrophils # 11.03 X 10*3/uL (1.80-7.70) H 11/21/21 05:47 Lymphocytes # 1.18 X 10*3/uL (0.90-5.00) 11/21/21 05:47 Monocytes # 0.18 X 10*3/uL (0.20-1.00) L 11/21/21 05:47 Eosinophils # 0 X 10*3/uL (0.04-0.35) L 11/21/21 05:47 Basophils # 0.01 X 10*3/uL (0.00-0.10) 11/21/21 05:47 NRBC/100 WBC Diff 0 /100 WBCS (0.0-0.0) 11/21/21 05:47 Sodium 139 mmol/L (135-145) 11/21/21 05:47 Potassium 4.5 mmol/L (3.5-5.5) 11/21/21 05:47 Chloride 106 mmol/L (96-109) 11/21/21 05:47 Carbon Dioxide 24.0 mmol/L (20.0-27.5) 11/21/21 05:47 Anion Gap 9.00 mmol/L (10.00-18.00) L 11/21/21 05:47 BUN 16.0 mg/dL (9.0-27.0) 11/21/21 05:47 Creatinine 0.7 mg/dL (0.6-1.5) 11/21/21 05:47 Est GFR (CKD-EPI)AfAm 107.6 (60.0-200.0) 11/21/21 05:47 Est GFR (CKD-EPI)NonAf 92.9 (60.0-200.0) 11/21/21 05:47 Calcium 8.9 mg/dL (8.7-10.3) 11/21/21 05:47 Phosphorus 3.3 mg/dL (2.4-5.1) 11/21/21 05:47 Magnesium 2.0 mg/dL (1.5-2.4) 11/21/21 05:47 Procedures: OPERATION: 1. Robotic-assisted da Judy Xi laparoscopic repair of incarcerated paraesophageal hiatal hernia, 4 x 3 cm, with [place] Biopatch A 8 x 8 cm. 2. Intraoperative esophagogastroduodenoscopy 3. Placement of 56-British bougie ANESTHESIA: General with local anesthetic. ESTIMATED BLOOD LOSS: 5 mL SPECIMENS REMOVED: None COMPLICATIONS: None. Condition: stable Disposition: floor FINDINGS: 1. Midline incarcerated paraesophageal hiatal hernia 4 x 3 cm 2. Intraoperative upper endoscopy confirms complete closure of hiatal hernia from Hill grade 3 to Hill grade 1 3. Intraesophageal length 3 cm 4. Omentum to abdominal wall adhesions, left upper quadrant 5. Incarcerated paraesophageal fat reduced into the abdomen Patient Condition at Discharge: Good Plan - Discharge Summary Discharge Rx Participant: Yes New Discharge Prescriptions: New bisacodyL [Dulcolax] 5 mg PO DAILY PRN #10 tab PRN Reason: Constipation Simethicone 40 mg/0.6 ml Drops [Mylicon Drops] 40 mg PO PCHS PRN #30 ml PRN Reason: Gas Acetaminophen Tab [Tylenol] 1,000 mg PO Q6HR PRN #30 tablet PRN Reason: Pain Omeprazole [PriLOSEC] 40 mg PO DAILY #30 cap Ondansetron Odt [Zofran Odt] 4 mg PO Q8HR PRN #9 tab PRN Reason: Nausea Continue Nystatin 1 applic TOPICAL DAILY PRN PRN Reason: Rash DULoxetine HCL [Cymbalta] 60 mg PO QAM Gabapentin 300 mg PO TID Cyclobenzaprine [Flexeril] 10 mg PO TID PRN PRN Reason: Pain hydroCHLOROthiazide 12.5 mg PO DAILY PRN PRN Reason: Edema Discontinued Pravastatin Sodium [Pravachol] 20 mg PO HS Ibuprofen [Advil] 200 mg PO Q8HR PRN PRN Reason: Pain Amlodipine Besylate/Valsartan [Amlodipine-Valsartan 10-160 mg] 1 each PO QAM Ergocalciferol [Vitamin D2 (1250 Mcg = 36466 Iu)] 50,000 unit PO WE Ferrous Sulfate [Iron (65 MG Elemental)] 325 mg PO DAILY Vitamin B Complex 1 each PO DAILY Prevacid (Unknown Dose) 1 tab PO DAILY Discharge Medication List Cyclobenzaprine [Flexeril] 10 mg PO TID PRN 07/05/21 [History] DULoxetine HCL [Cymbalta] 60 mg PO QAM 07/05/21 [History] Gabapentin 300 mg PO TID 07/05/21 [History] Nystatin 1 applic TOPICAL DAILY PRN 07/05/21 [History] hydroCHLOROthiazide 12.5 mg PO DAILY PRN 07/05/21 [History] Acetaminophen Tab [Tylenol] 1,000 mg PO Q6HR PRN #30 tablet 11/21/21 [Rx] Omeprazole [PriLOSEC] 40 mg PO DAILY #30 cap 11/21/21 [Rx] Ondansetron Odt [Zofran Odt] 4 mg PO Q8HR PRN #9 tab 11/21/21 [Rx] Simethicone 40 mg/0.6 ml Drops [Mylicon Drops] 40 mg PO PCHS PRN #30 ml 11/21/21 [Rx] bisacodyL [Dulcolax] 5 mg PO DAILY PRN #10 tab 11/21/21 [Rx] Follow up [facility]ment(s[facility] [place] [facility] - 11/24/21 9:00 am Patient Instructions/Handouts: *Surgery [facility] - Scopalamine Patch Instructions, Acetaminophen (By mouth), Simethicone (By mouth), Omeprazole (By mouth), Ondansetron (By mouth), Bisacodyl (By mouth), Surgical Site Infections (DC) Activity/Diet/Wound Care/Special Instructions: Wear abdominal binder at all times for comfort. No lifting over 4 pounds in 4 weeks You May shower. No bath tub soaks for two weeks Use Tylenol scheduled for the next 24-48 hours for best pain relief. Use ice along incisions for the today to prevent swelling. No straws or carbonated beverages Hold on taking all vitamins until seen by surgeon Check BP daily. Hold BP meds for SBP<120 Discharge Disposition: HOME SELF-CARE
[2021-11-22] MEDS ORDERED: bisacodyL 5 MG TABLET.DR PO PRN (08:00)
== END 2021-11-21 15:13 | disposition home or self-care (01) ==
LOC: OR 09:24 → 6NMEDSUR 13:50 → 5NMEDONC 14:52 → OR 11-21 01:47 → 5NMEDONC 11-21 01:47 → UNDODISOB 11-21 15:13
PROVIDERS: ADMIT Surgery Plastic and Reconstructive Surgery; ATTEND Surgery Plastic and Reconstructive Surgery
DX: K44.0 Diaphragmatic hernia with obstruction, without gangrene (principal); K66.0 Peritoneal adhesions (postprocedural) (postinfection); R16.0 Hepatomegaly, not elsewhere classified; K21.9 Gastro-esophageal reflux disease without esophagitis; E66.01 Morbid (severe) obesity due to excess calories; Z68.39 Body mass index [BMI] 39.0-39.9, adult; M79.7 Fibromyalgia; I11.9 Hypertensive heart disease without heart failure; F32.A Depression, unspecified; D50.9 Iron deficiency anemia, unspecified; E78.2 Mixed hyperlipidemia; Z87.891 Personal history of nicotine dependence; K22.4 Dyskinesia of esophagus; Z82.49 Family history of ischemic heart disease and other diseases of the circulatory system; Z80.1 Family history of malignant neoplasm of trachea, bronchus and lung; Z90.49 Acquired absence of other specified parts of digestive tract; Z90.710 Acquired absence of both cervix and uterus; Z98.890 Other specified postprocedural states; Z79.899 Other long term (current) drug therapy
CPT/HCPCS: 43282; S2900; 43235; 74210; 80051; 82310; 82565; 83735; 84100; 84520; 85025

== ENCOUNTER → 2021-11-29 | Outpatient (CLI) | payer BC ==
[2021-11-29 15:07] VITALS: BP 131/86; PULSE 106; TEMP 98.5; BMI 39.0
--- NOTE | 2021-11-29 16:00 | P.BASOAP ---
Subjective Progress Note Date: 11/29/21 Recommend stop antacids. Plan for sleeve gastrectomy. She is doing very well. Objective - Vital Signs Vital signs: Vital Signs Temp 98.5 F 11/29/21 15:03 Pulse 106 H 11/29/21 15:03 Resp BP 131/86 11/29/21 15:03 Pulse Ox FiO2 Intake & Output 11/28/21 11/29/21 11/29/21 18:59 06:59 18:59 Weight 116.573 kg Assessment/Plan Plan: Date: 11/29/21 Initial Weight: 122.668 kg Initial BMI: 41.1 Current Weight: 116.573 kg Current BMI: 39.0 Type of Surgery: Total Volume in Band: Previous Volume: Volume Removed: Volume Added: Band Size:
== END | disposition home or self-care (01) ==
LOC: BARWHC3 14:31
PROVIDERS: ATTEND Surgery Plastic and Reconstructive Surgery
DX: E66.01 Morbid (severe) obesity due to excess calories (principal); Z68.39 Body mass index [BMI] 39.0-39.9, adult
CPT/HCPCS: 99211

== ENCOUNTER → 2021-12-04 | Outpatient (CLI) | payer BC ==
[2021-12-04 10:59] VITALS: BMI 39.5
== END ==
LOC: BARWHC3 08:32
PROVIDERS: ATTEND Surgery Plastic and Reconstructive Surgery
DX: E66.01 Morbid (severe) obesity due to excess calories (principal); Z71.3 Dietary counseling and surveillance; Z68.39 Body mass index [BMI] 39.0-39.9, adult
CPT/HCPCS: 97804

== ENCOUNTER 2022-02-05 11:55 | Inpatient (IN) | payer BC ==
--- NOTE | 2022-02-05 09:16 | P.GSHP ---
History of Present Illness H&P Date: 02/05/22 CHIEF COMPLAINT: Morbid obesity HISTORY OF PRESENT ILLNESS: Sabina Kirkland is a 61-year-old female who comes with lifelong morbid obesity. As a result of her morbid obesity, she has developed hypertensive heart disease and osteoarthritis. She had recent hiatal hernia repair for gastroesophageal reflux disease now corrected. At height of 5 feet 8 inches, her ideal body weight is 163 pounds. Her highest weight is 270 pounds, body mass index 41.1 She comes in 268 pounds from 270 pounds, 3 months ago. She has lost 1 pound in 3 months. Her body mass index is 40.9. She is 105 pounds overweight. PAST MEDICAL HISTORY: 1. Morbid obesity due to excess calories, BMI 41.1 2. Hypertensive heart disease 3. Osteoarthritis of the back 4. Depressive disorder 5. Hyperlipidemia 6. Iron deficiency 7. Gastroesophageal reflux disease 8. Neuropathy PAST SURGICAL HISTORY: 1. No abdominal surgeries HOME MEDICATIONS: Home Medications Medication Instructions Recorded Confirmed Cyclobenzaprine [Flexeril] 10 mg PO TID PRN 07/05/21 11/29/21 DULoxetine HCL [Cymbalta] 60 mg PO QAM 07/05/21 11/29/21 Gabapentin 300 mg PO TID 07/05/21 11/29/21 Nystatin 1 applic TOPICAL DAILY PRN 07/05/21 11/29/21 hydroCHLOROthiazide 12.5 mg PO DAILY PRN 07/05/21 11/29/21 Previous Rx's Medication Instructions Recorded Acetaminophen Tab [Tylenol] 1,000 mg PO Q6HR PRN #30 tablet 11/21/21 Omeprazole [PriLOSEC] 40 mg PO DAILY #30 cap 11/21/21 Ondansetron Odt [Zofran Odt] 4 mg PO Q8HR PRN #9 tab 11/21/21 Simethicone 40 mg/0.6 ml Drops 40 mg PO PCHS PRN #30 ml 11/21/21 [Mylicon Drops] bisacodyL [Dulcolax] 5 mg PO DAILY PRN #10 tab 11/21/21 ALLERGIES: Allergies Allergy/AdvReac Type Severity Reaction Status Date / Time No Known Allergies Allergy Verified 11/15/21 09:54 SOCIAL HISTORY: Denies tobacco use. FAMILY HISTORY: No family history of ulcerative colitis disease or Crohn's disease. Family history of morbid obesity. No lupus in the family. No reports of stomach or esophageal cancer. She reports her grandmother had obesity. REVIEW OF ORGAN SYSTEMS: CONSTITUTIONAL: At height of 5 feet 8 inches, her ideal body weight is 163 pounds. Her highest weight is 270 pounds, body mass index 41.1 She comes in 270 pounds. Her body mass index is 41.1. She is 107 pounds overweight. HEENT: Denies any active troubles with vision or hearing. ENDOCRINE: Denies diabetes. Denies hypothyroidism. CARDIOVASCULAR: Denies past reports of palpitations or heart attacks or chest pain. Has hypertensive heart disease. Has hyperlipidemia. RESPIRATORY: Has daytime somnolence and snores. GASTROINTESTINAL: Denies any bright red blood per rectum. No diarrhea. No constipation. Has gastroesophageal reflux disease. GENITOURINARY: Denies bladder urgency. No recent blood in urine MUSCULOSKELETAL: Has lower back pain and joint pain. Denies history of bilateral lower extremity edema. Osteoarthritis of the lower back. NEURO: Has chronic migraines. No seizure disorders. PSYCH: Has depression. No suicidal ideation. RHEUMATOLOGIC: No lupus. No rheumatoid arthritis. HEMATOLOGIC: Denies any abnormal bleeding or bruising. Denies past history of DVTs. SKIN: No rash. No skin cancer. PHYSICAL EXAM: VITAL SIGNS: Height 5 foot 8 inches, weight 268 pounds. BMI 40.9 GENERAL: Well-developed in no acute distress. HEENT: No scleral icterus. Extraocular movements grossly intact. Hears conversational speech. No nasal drainage. NECK: Supple without lymphadenopathy. CHEST: Nonlabored respirations with equal bilateral excursions. CARDIOVASCULAR: Tachycardia. Distal 2+ pulses. ABDOMEN: Obese, soft, nontender, nondistended. MUSCULOSKELETAL: No clubbing, cyanosis. NEURO: No focal or lateralizing signs. Cranial nerves 2 through 12 grossly within normal limits. PSYCH: Appropriate affect. Alert and oriented to person, place and time. SKIN: Good skin turgor. Well perfused. ASSESSMENT: 1. Morbid obesity due to excess calories, BMI 41.1 2. Hypertensive heart disease 3. Osteoarthritis of the back 4. Depressive disorder 5. Hyperlipidemia 6. Iron deficiency anemia 7. Gastroesophageal reflux disease 8. Neuropathy 9. Diabetes type 2 10. Hypercholesterolemia 11. Vitamin D deficiency 12. Zinc deficiency PLAN: 1. Bariatric options between a sleeve, band and a Tobias-en-Y gastric bypass were reviewed in detail. The patient elected for a sleeve gastrectomy. Robotic assisted approach described. 2. The [place] [facility] Data was also reviewed with benefits and risks as described. 3. An 8 page second-generation bariatric consent form was reviewed in detail including potential of bleeding, infection, leaks, adequate weight loss, nutritional deficiencies which the patient demonstrated understanding of the risks. 4. A 2 week high-protein low caloric 800 kcal diet described to address hepatomegaly. 5. Preoperative labs including complete metabolic panel and CBC with type and screen recommended. 6. DVT prophylaxis per [place] [facility]. 7. Antibiotic prophylaxis. 8. Inpatient hospitalization anticipated for more than 2 nights. 9. All questions and concerns were addressed with the patient. 10. The patient is at elevated risk for perioperative complications with hyper tensive heart disease. 11. Overall, patient has expressed understanding of bariatric care including postoperative diet and commitment of lifestyle. Patient should benefit from surgical intervention for correction of morbid obesity. Past Medical History Past Medical History: Fibromyalgia, GERD/Reflux, Hyperlipidemia, Hypertension, Osteoarthritis (OA) Additional Past Medical History / Comment(s): ANEMIA, History of Any Multi-Drug Resistant Organisms: None Reported Past Surgical History: Adenoidectomy, Cholecystectomy, Hernia Repair, Hysterectomy, Orthopedic Surgery, Tonsillectomy Additional Past Surgical History / Comment(s): Right shoulder surgery for bone spurs, right knee arthroscopy, colonoscopy, EGD, hiatal hernia surgery with lysis of adhesions 11/20/21 Past Anesthesia/Blood Transfusion Reactions: Motion Sickness Smoking Status: Former smoker - Past Family History Mother Family Medical History: Cancer Additional Family Medical History / Comment(s): Lung cancer. Medications and Allergies Home Medications Medication Instructions Recorded Confirmed Type Cyclobenzaprine [Flexeril] 10 mg PO TID PRN 07/05/21 02/02/22 History DULoxetine HCL [Cymbalta] 60 mg PO QAM 07/05/21 02/02/22 History Gabapentin 300 mg PO TID 07/05/21 02/02/22 History Nystatin 1 applic TOPICAL DAILY PRN 07/05/21 02/02/22 History hydroCHLOROthiazide 12.5 mg PO DAILY PRN 07/05/21 02/02/22 History Acetaminophen Tab [Tylenol] 1,000 mg PO Q6HR PRN #30 tablet 11/21/21 02/02/22 Rx Omeprazole [PriLOSEC] 40 mg PO DAILY #30 cap 11/21/21 02/02/22 Rx Ondansetron Odt [Zofran Odt] 4 mg PO Q8HR PRN #9 tab 11/21/21 02/02/22 Rx Simethicone 40 mg/0.6 ml Drops 40 mg PO PCHS PRN #30 ml 11/21/21 02/02/22 Rx [Mylicon Drops] bisacodyL [Dulcolax] 5 mg PO DAILY PRN #10 tab 11/21/21 02/02/22 Rx Amlodipine Besylate/Valsartan 1 each PO DAILY 02/02/22 02/02/22 History [Amlodipine-Valsartan 10-160 mg] Allergies Allergy/AdvReac Type Severity Reaction Status Date / Time No Known Allergies Allergy Verified 02/02/22 12:44
[~2022-02-05 11:55] MED LIST changes: +ENOXAPARIN 40 MG/0.4 ML SYRINGE SQ PRN; -HYDROmorphone 0.5 MG/0.5 ML SYRINGE IVP PRN; -LACTATED RINGERS 1,000 ML IV SCH; +MIDAZOLAM 2 MG/2 ML VIAL IV PRN; -SCOPOLAMINE 1 MG/72 HR PATCH TRANSDERM ONE; +SCOPOLAMINE 1 MG/72 HR PATCH TRANSDERM STA; -ceFAZolin 3 GM in SODIUM CHLORIDE 0.9% 100 ML IVPB PRN
[2022-02-05] MEDS: LACTATED RINGERS 1,000 ML IV SCH (12:35)
[2022-02-05 14:03] LABS: Basophils # (A) 0.1 k/uL (0-0.2); Basophils % (A) 1 %; Eosinophils # (A) 0.2 k/uL (0-0.7); Eosinophils % (A) 2 %; HCT 43.6 % (34.0-46.0); HGB 14.8 gm/dL (11.4-16.0); Lymphocytes # (A) 1.8 k/uL (1.0-4.8); Lymphocytes % (A) 22 %; MCH 30.2 pg (25.0-35.0); MCHC 33.9 g/dL (31.0-37.0); MCV 89.2 fL (80.0-100.0); Mean Platelet Volume 10.8; Monocytes # (A) 0.4 k/uL (0-1.0); Monocytes % (A) 5 %; Neutrophils % (A) 70 %; Platelet Count 360 k/uL (150-450); RBC 4.89 m/uL (3.80-5.40); RDW 13.3 % (11.5-15.5); WBC 8.6 k/uL (3.8-10.6)
[2022-02-05 14:21] LABS: ALT 57 U/L (4-34); AST 43 U/L (14-36); African American GFR (CKD) >90 (>60 ml/min/1.73 sqM); Albumin 4.5 g/dL (3.5-5.0); Alkaline Phosphatase 125 U/L (38-126); Anion Gap 14 mmol/L; Blood Urea Nitrogen 16 mg/dL (7-17); Calcium 9.1 mg/dL (8.4-10.2); Carbon Dioxide 19 mmol/L (22-30); Chloride 105 mmol/L (98-107); Glucose 93 mg/dL (74-99); Non-African American GFR(CKD) >90 (>60 ml/min/1.73 sqM); Potassium 4.6 mmol/L (3.5-5.1); Sodium 138 mmol/L (137-145); Total Bilirubin 0.7 mg/dL (0.2-1.3); Total Protein 7.1 g/dL (6.3-8.2)
[2022-02-05] MEDS ORDERED: LIDOCAINE 2%-EPI 1:100,000 20 ML VIAL SQ ONE (14:31)
[2022-02-05] MEDS ORDERED: LACTATED RINGERS 1,000 ML IV ONE (15:00)
[2022-02-05] MEDS: HYDROmorphone 0.5 MG/0.5 ML SYRINGE IVP PRN ×3 (16:00→16:19)
[2022-02-05] MEDS ORDERED: NALOXONE 0.4 MG/ML 1 ML VIAL IV PRN ×2 (17:36→17:45)
[2022-02-05] MEDS ORDERED: diphenhydrAMINE 50 MG/ML 1 ML VIAL IVP PRN (17:37)
[2022-02-05] MEDS ORDERED: HYDROmorphone 1 MG/ML 1 ML SYRINGE IVP PRN (17:37)
[2022-02-05] MEDS ORDERED: hydroCHLOROthiazide 12.5 MG CAP PO PRN (17:38)
[2022-02-05] MEDS ORDERED: fentaNYL PCA 500 MCG/50 ML BAG IV PRN (17:45)
--- NOTE | 2022-02-05 17:45 | P.OP ---
Date of Procedure: 02/05/22 Indications for Procedure: SURGEON: SOMMER GAMING MD PREOPERATIVE DIAGNOSES: 1. Morbid obesity due to excess calories, BMI 41.1 2. Hypertensive heart disease 3. Osteoarthritis of the back 4. Depressive disorder 5. Hyperlipidemia 6. Iron deficiency anemia 7. Gastroesophageal reflux disease 8. Neuropathy 9. Diabetes type 2 10. Hypercholesterolemia 11. Vitamin D deficiency 12. Zinc deficiency POSTOPERATIVE DIAGNOSES: 1. Morbid obesity due to excess calories, BMI 41.1 2. Hypertensive heart disease 3. Osteoarthritis of the back 4. Depressive disorder 5. Hyperlipidemia 6. Iron deficiency anemia 7. Gastroesophageal reflux disease 8. Neuropathy 9. Diabetes type 2 10. Hypercholesterolemia 11. Vitamin D deficiency 12. Zinc deficiency OPERATION: 1. Robotic assisted daVinci Xi laparoscopic sleeve gastrectomy with 40-Ethiopian bougie tapered, multiport. 2. Intraoperative esophagogastroduodenoscopy. ANESTHESIA: Gen. local anesthetic ESTIMATED BLOOD LOSS: 5 mL SPECIMENS REMOVED: Sleeve gastrectomy COMPLICATIONS: None. FINDINGS: 1. Negative intraoperative esophagogastrojejunoscopy leak test. 2. No hepatomegaly and no large hiatus hernia. 3. Total of 7 staplers used including 2 - 60 mm green robot kary and 5 - 60 mm blue robot loads used to create the gastric sleeve. 4. Sleeve gastrectomy, 31 x 4 cm INDICATIONS: Sabina Kirkland is a 61-year-old female who comes with lifelong morbid obesity. As a result of her morbid obesity, she has developed hypertensive heart disease and osteoarthritis. She had recent hiatal hernia repair for gastroesophageal reflux disease now corrected. At height of 5 feet 8 inches, her ideal body weight is 163 pounds. Her highest weight is 270 pounds, body mass index 41.1 She comes in 248 pounds from 268 pounds, 3 months ago. She has lost 20 pounds in 3 months. She is 85 pounds overweight. All surgical options for morbid obesity had been described using the [place] bariatric surgery collaborative comorbidity resolution including complication risk score. A second-generation bariatric consent form was described in detail including the possibility of protein malnutrition, leaks, gastric stricture, venous thrombosis, gastroesophageal reflux disease, need for further surgery for which she demonstrated understanding. Benefits and risks of the procedure were described at length. Informed consent was obtained. DESCRIPTION: The patient was brought into the operating room theater. Preoperatively she had received Lovenox subcutaneously for DVT prophylaxis. Additionally she had Peridex oral solution as an oral decontaminant. After general induction, the abdomen was prepped and draped in standard sterile fashion. An Ioban draping was placed along the abdomen. A robotic da Judy Xi system was prepped and primed. At 15 cm from the xiphoid, proposed port sites were marked with indelible marker along the anterior axillary line bilaterally, mid axillary line bilaterally with each ports were marked 10 to 15 cm from each other. The robotic stapler port was marked for the right midclavicular line. A 5 mm 0 degrees laparoscopic trocar entry was performed along the left upper quadrant. The abdomen was insufflated to 15 mmHg pressure was tolerated well. Diagnostic laparoscopy demonstrated no injury to bowel, viscera, or mesentery. No evidence of recurrent hiatus hernia was identified. The liver edge was sharp consistent with 2 week low-carb high-protein diet. A 8 mm port was placed along the left upper abdominal wall after exchanging the 5 mm port. A separate 8 mm port was placed along the left lateral abdominal wall. Please note that the ports were placed at least 20 cm away from the target anatomy. Care was taken to check each robotic arms were safely away from collision with the bed or the patient. At the epigastrium, a medium sized Darci liver retractor was placed under direct visualization with the Iron Granite Installer placed under the right shoulder of the patient. Next, 12-mm robot stapler port was placed along the right upper quadrant. The camera 8-mm port was maintained along the epigastrium. The patient was repositioned in reverse Trendelenburg position at 21-degrees after lowering the bed. The robot was docked along the left side of the patient. Using a grasper for arm 4, a vessel sealer for arm 3, including grasper for arm 1, the robotic system was docked and primed as described. Instruments were interchanged by the real estate administrative assistant for stapler loads. The camera was placed at 30- degrees down. I had sat at the console. The pylorus was identified and 6 cm proximally along the greater curvature of the stomach, the short gastrics were mobilized upwards to the angle of His using a vessel sealer. Hemostasis was excellent during this portion of the procedure. Next, the upper pole of the stomach was adherent to the left [place], which was gently dissected free using atraumatic grasper. I went to the head of the bed and placed 40-Ethiopian tapered bougie into the stomach. No recurrent hiatal hernia identified. The bougie was readjusted by the nurse court deputy. Robotic stapler green load 60 mm 2 followed by blue 60 mm x 5 loads were used to create the sleeve. Initial firing was across the antrum of the stomach towards the angle of His. The staple line was linear without corkscrewing. The space from the angularis incisura of the sleeve was approximately 4 cm. I then went to the head of the bed to perform the intraoperative esophagogast roduodenoscopy leak test. The bougie was withdrawn. The upper pole of the stomach was bathed using normal saline solution. The scope was withdrawn with careful inspection along the staple line for which no leaks were found along the entire length. Additionally,the sleeve was completely hemostatic without any encroachment along the angularis incisura. Its topology was a soft "J". No stricture was encountered upon placement of the scope. The GI tract was desufflated. The patient tolerated this portion of the procedure well. The scope was completely withdrawn. The robot was undocked. I then rescrubbed into case, whereby the irrigation fluid was aspirated from the abdominal cavity. Tisseel fibrin sealant was placed along the entire staple length. Once dried the Darci liver retractor was removed. Attention was now brought to removal of the specimen. The distal end of the sleeve gastrectomy specimen was brought out through the 12 mm port at the left upper quadrant. The specimen was gently removed en total. No contamination had occurred during this process. All instruments and pneumoperitoneum including irrigation fluid was removed from the abdominal cavity. The 12 mm port site was closed using 0-Vicryl and Nato Storey and irrigated with diluted hydrogen peroxide. The final incisions were closed using subcuticular interrupted suture of 4-0 Monocryl. Exofin was applied to the skin once the skin had been cleansed. OptiFoam dressing was placed along the stomach extraction site. The sleeve specimen was measured and checked also for leaks which none were found. At the end of the procedure, needle, sponge, and instrument count was verified correct by the surgical training specialist. The patient was taken to the postanesthesia care unit in stable condition. She had tolerated the procedure well. Intraoperative films and findings were reviewed with the patient's family.
[2022-02-05] MEDS: ACETAMINOPHEN IV (For NPO) 1,000 MG in EMPTY BAG 1 BAG IVPB SCH (18:15)
[2022-02-05] MEDS: ONDANSETRON 4 MG/2 ML VIAL IVP SCH (18:16)
[2022-02-05] MEDS: HYOSCYAMINE ORAL DROPS 1.875 MG/15 ML BOTTLE PO SCH (19:12)
[2022-02-05] MEDS: SIMETHICONE 40 MG/0.6 ML DROPS 2,000 MG/30 ML BOTTLE PO SCH (19:13)
[2022-02-05] MEDS ORDERED: DEXAMETHASONE SOD PHOSPHATE 10 MG/ML 1 ML VIAL IVP ONE (20:00)
[2022-02-05] MEDS: ALBUTEROL NEBULIZED 2.5 MG/3 ML INHALATION SCH (20:33)
[2022-02-05] MEDS: SODIUM CHLORIDE 0.9% 1,000 ML IV SCH (21:02)
[2022-02-05] MEDS: 0.9% NACL WITH KCL 20 MEQ/L 1,000 ML IV SCH (22:00)
[2022-02-06] MEDS: GABAPENTIN 300 MG CAP PO SCH ×2 (00:04→09:05)
[2022-02-06] MEDS: ONDANSETRON 4 MG/2 ML VIAL IVP SCH ×3 (00:04→11:34)
[2022-02-06] MEDS: SIMETHICONE 40 MG/0.6 ML DROPS 2,000 MG/30 ML BOTTLE PO SCH ×3 (01:45→11:36)
[2022-02-06] MEDS: DEXAMETHASONE SOD PHOSPHATE 4 MG/ML 1 ML VIAL IVP SCH ×3 (01:45→11:40)
[2022-02-06] MEDS: ACETAMINOPHEN IV (For NPO) 1,000 MG in EMPTY BAG 1 BAG IVPB SCH ×3 (01:45→11:39)
[2022-02-06] MEDS: HYOSCYAMINE ORAL DROPS 1.875 MG/15 ML BOTTLE PO SCH ×3 (01:46→11:35)
[2022-02-06] MEDS: SODIUM CHLORIDE 0.9% 1,000 ML IV SCH (01:47)
[2022-02-06] MEDS: 0.9% NACL WITH KCL 20 MEQ/L 1,000 ML IV SCH (01:54)
[2022-02-06] MEDS: LACTATED RINGERS 1,000 ML IV SCH (05:19)
[2022-02-06] MEDS ORDERED: 0.9% NACL WITH KCL 20 MEQ/L 1,000 ML IV SCH (08:00)
[2022-02-06] MEDS ORDERED: ENOXAPARIN 40 MG/0.4 ML SYRINGE SQ SCH (09:00)
[2022-02-06] MEDS ORDERED: PANTOPRAZOLE 40 MG/10 ML VIAL IV SCH (09:00)
[2022-02-06] MEDS ORDERED: amLODIPine 10 MG TAB PO SCH (09:00)
[2022-02-06] MEDS ORDERED: VALSARTAN 160 MG TAB PO SCH (09:00)
[2022-02-06] MEDS: ALBUTEROL NEBULIZED 2.5 MG/3 ML INHALATION SCH ×3 (09:06→14:50)
[2022-02-06 09:38] VITALS: BMI 37.4
[2022-02-06 10:37] LABS: Basophils # (A) 0.01 X 10*3/uL (0.00-0.10); Basophils % (A) 0.1 %; Eosinophils # (A) 0 X 10*3/uL (0.04-0.35); Eosinophils % (A) 0 %; HCT 39.6 % (37.2-46.3); HGB 12.8 g/dL (12.0-15.0); Immature Grans, Automated 0.2 %; Lymphocytes # (A) 0.94 X 10*3/uL (0.90-5.00); Lymphocytes % (A) 7.7 %; MCH 29.7 pg (27.0-32.0); MCHC 32.3 g/dL (32.0-37.0); MCV 91.9 fL (80.0-97.0); Mean Platelet Volume 12.7 fL (9.5-12.2); Monocytes # (A) 0.16 X 10*3/uL (0.20-1.00); Monocytes % (A) 1.3 %; NRBC Per 100 WBC 0 /100 WBCS (0.0-0.0); Neutrophils % (A) 90.7 %; Platelet Count 350 X 10*3/uL (140-440); RBC 4.31 X 10*6/uL (4.10-5.20); RDW 14.1 % (11.5-14.5); WBC 12.14 X 10*3/uL (4.50-10.00)
[2022-02-06 10:48] LABS: African American GFR (CKD) 113.2 (60.0-200.0); Anion Gap 11.8 mmol/L (10.00-18.00); Blood Urea Nitrogen 14.6 mg/dL (9.0-27.0); Calcium 8.7 mg/dL (8.7-10.3); Carbon Dioxide 20.2 mmol/L (20.0-27.5); Non-African American GFR(CKD) 97.7 (60.0-200.0)
--- NOTE | 2022-02-06 11:34 | FL ---
SINGLE CONTRAST UPPER GI EXAMINATION: CLINICAL HISTORY: 61-year-old female postop bariatric surgery. Patient with history of hiatal hernia repair recently on 12/11/2021. Gastric sleeve surgery yesterday. TECHNIQUE: Single contrast exam performed with 50 ml Isovue-370 contrast. Total fluoroscopy time: 1 minute 21 seconds. Total images: 28. FINDINGS: The patient swallowed oral contrast without difficulty or delay. Esophageal peristalsis and motility are within normal limits. There is prompt passage of contrast from the esophagus into the proximal s tomach. Satisfactory passage of contrast across the sleeve gastrectomy. There is no evidence of contr ast extravasation to suggest leak. As contrast accumulates in the distal stomach, eventual passage in to the duodenum. No postsurgical free air. IMPRESSION: No evidence of leak or significant obstruction status post sleeve gastrectomy.
[2022-02-06] MEDS ORDERED: KETOROLAC 15 MG/ML 1 ML VIAL IVP SCH (12:00)
[2022-02-06 12:13] LABS: Magnesium 1.8 mg/dL (1.5-2.4)
[2022-02-06 13:52] VITALS: BP 105/69; RESP 18; TEMP 98
--- NOTE | 2022-02-06 14:12 | P.DS ---
Providers Date of admission: 02/05/22 12:01 Expected date of discharge: 02/06/22 Attending physician: Dariela Manzanares Primary care physician: Stated None Hospital Course: Discharge diagnosis 1. Morbid obesity due to excess calories, BMI 41.1 2. Hypertensive heart disease 3. Osteoarthritis of the back 4. Depressive disorder 5. Hyperlipidemia 6. Iron deficiency anemia 7. Gastroesophageal reflux disease 8. Neuropathy 9. Diabetes type 2 10. Hypercholesterolemia 11. Vitamin D deficiency 12. Zinc deficiency Hospital course Sabina Kirkland is a 61-year-old female who comes with lifelong morbid obesity. As a result of her morbid obesity, she has developed hypertensive heart disease and osteoarthritis. Patient is status post robotic-assisted laparoscopic sleeve gastrectomy. Patient tolerated surgery well. Upper GI shows no evidence of leak or obstruction. She is tolerating diet. Her pain is controlled. She is having flatus. She is up and ambulating. She's afebrile. She is stable for discharge. Physician Membership Director note has been reviewed by physician. Signing provider agrees with the documented findings, assessment, and plan of care. Patient Condition at Discharge: Stable Plan - Discharge Summary Discharge Rx Participant: No New Discharge Prescriptions: New bisacodyL [Dulcolax] 5 mg PO DAILY PRN #10 tab PRN Reason: Constipation Simethicone 40 mg/0.6 ml Drops [Mylicon Drops] 40 mg PO PCHS PRN #30 ml PRN Reason: Gas Omeprazole [PriLOSEC] 40 mg PO DAILY #30 cap Ondansetron Odt [Zofran Odt] 4 mg PO Q8HR PRN #9 tab PRN Reason: Nausea Acetaminophen Tab [Tylenol] 1,000 mg PO Q6HR PRN #30 tablet PRN Reason: Pain Continue Nystatin 1 applic TOPICAL DAILY PRN PRN Reason: Rash DULoxetine HCL [Cymbalta] 60 mg PO QAM bisacodyL [Dulcolax] 5 mg PO DAILY PRN #10 tab PRN Reason: Constipation Simethicone 40 mg/0.6 ml Drops [Mylicon Drops] 40 mg PO PCHS PRN #30 ml PRN Reason: Gas Acetaminophen Tab [Tylenol] 1,000 mg PO Q6HR PRN #30 tablet PRN Reason: Pain Gabapentin 300 mg PO TID Cyclobenzaprine [Flexeril] 10 mg PO TID PRN PRN Reason: Pain Omeprazole [PriLOSEC] 40 mg PO DAILY #30 cap Ondansetron Odt [Zofran ODT] 4 mg PO Q8HR PRN #9 tab PRN Reason: Nausea Amlodipine Besylate/Valsartan [Amlodipine-Valsartan 10-160 mg] 1 each PO DAILY Discontinued hydroCHLOROthiazide 12.5 mg PO DAILY PRN PRN Reason: Edema Discharge Medication List Cyclobenzaprine [Flexeril] 10 mg PO TID PRN 07/05/21 [History] DULoxetine HCL [Cymbalta] 60 mg PO QAM 07/05/21 [History] Gabapentin 300 mg PO TID 07/05/21 [History] Nystatin 1 applic TOPICAL DAILY PRN 07/05/21 [History] Acetaminophen Tab [Tylenol] 1,000 mg PO Q6HR PRN #30 tablet 11/21/21 [Rx] Omeprazole [PriLOSEC] 40 mg PO DAILY #30 cap 11/21/21 [Rx] Ondansetron Odt [Zofran ODT] 4 mg PO Q8HR PRN #9 tab 11/21/21 [Rx] Simethicone 40 mg/0.6 ml Drops [Mylicon Drops] 40 mg PO PCHS PRN #30 ml 11/21/21 [Rx] bisacodyL [Dulcolax] 5 mg PO DAILY PRN #10 tab 11/21/21 [Rx] Amlodipine Besylate/Valsartan [Amlodipine-Valsartan 10-160 mg] 1 each PO DAILY 02/02/22 [History] Acetaminophen Tab [Tylenol] 1,000 mg PO Q6HR PRN #30 tablet 02/06/22 [Rx] Omeprazole [PriLOSEC] 40 mg PO DAILY #30 cap 02/06/22 [Rx] Ondansetron Odt [Zofran Odt] 4 mg PO Q8HR PRN #9 tab 02/06/22 [Rx] Simethicone 40 mg/0.6 ml Drops [Mylicon Drops] 40 mg PO PCHS PRN #30 ml 02/06/22 [Rx] bisacodyL [Dulcolax] 5 mg PO DAILY PRN #10 tab 02/06/22 [Rx] [facility] [facility] [place] [place] [facility] [place] [facility] 9:00 am Activity/Diet/Wound Care/Special Instructions: Liquid diet only for 2 weeks No lifting over 4 pounds in 4 weeks May Shower. No soaking in bath tubs 2 weeks Please notify your surgeon if you develop nausea and vomiting including new on set of abdominal pain. Continue to use incentive spirometry to prevent pneumonias. Please continue to ambulate at home to prevent blood clots in legs. Follow-up at the bariatric center. May shower. Dressings to be discontinued by surgeon in the office. Drink 64 oz of fluid daily. Start protein shakes on . Notify bariatric center for temp over 101.0, increased pain, drainage from incisions. No straws or carbonated beverages. Liquid diet only. Sugar content should be less than 6 g to avoid dumping syndrome. Take MOM for constipation. CRUSH, OPEN, OR CUT TABLETS LARGER THAN A SIZE OF A TIC TAC Discharge Disposition: HOME SELF-CARE
[2022-02-06 14:52] VITALS: PULSE 90
[2022-02-07] MEDS ORDERED: bisacodyL 5 MG TABLET.DR PO PRN (08:00)
== END 2022-02-06 15:31 | disposition home or self-care (01) | DRG 621 ==
LOC: 2ORMAIN 12:01 → 4SSUR 15:57
PROVIDERS: ADMIT Surgery Plastic and Reconstructive Surgery; ATTEND Surgery Plastic and Reconstructive Surgery
PROC: 8E0W4CZ Robotic Assisted Procedure of Trunk Region, Percutaneous Endoscopic Approach (ICD-10-PCS; 2022-02-05)
PROC: 0DJ08ZZ Inspection of Upper Intestinal Tract, Via Natural or Artificial Opening Endoscopic (ICD-10-PCS; 2022-02-05)
PROC: 0DB64Z3 Excision of Stomach, Percutaneous Endoscopic Approach, Vertical (ICD-10-PCS; principal; 2022-02-05 13:35)
DX: E66.01 Morbid (severe) obesity due to excess calories (principal); Z68.41 Body mass index [BMI] 40.0-44.9, adult; I10 Essential (primary) hypertension; M19.90 Unspecified osteoarthritis, unspecified site; F32.A Depression, unspecified; D50.9 Iron deficiency anemia, unspecified; K21.9 Gastro-esophageal reflux disease without esophagitis; G62.9 Polyneuropathy, unspecified; M47.899 Other spondylosis, site unspecified; E11.42 Type 2 diabetes mellitus with diabetic polyneuropathy; E78.00 Pure hypercholesterolemia, unspecified; E55.9 Vitamin D deficiency, unspecified; E60 Dietary zinc deficiency; M79.7 Fibromyalgia; Z79.899 Other long term (current) drug therapy; Z87.891 Personal history of nicotine dependence; Z90.710 Acquired absence of both cervix and uterus; Z90.49 Acquired absence of other specified parts of digestive tract; Z87.19 Personal history of other diseases of the digestive system
CPT/HCPCS: 74240; 80051; 80053; 82310; 82565; 83735; 84100; 84520; 85025; 86850; 86900; 86901; 88307; 94640; 94760

== ENCOUNTER → 2022-02-09 | Outpatient (CLI) | payer BC ==
--- NOTE | 2022-02-09 09:28 | P.BASOAP ---
Subjective Progress Note Date: 02/09/22 Patient status post gastric sleeve postop day 4. She is tolerating protein shakes. She has appropriate left upper quadrant tenderness due to incision. No infection. Dressing discontinued. Follow-up in one week. Acceptable weight loss reviewed. All questions addressed. May resume home medications. Assessment/Plan Plan: Date: Initial Weight: 122.668 kg Initial BMI: Current Weight: Current BMI: Type of Surgery: Total Volume in Band: Previous Volume: Volume Removed: Volume Added: Band Size:
[2022-02-09 09:48] VITALS: BP 131/89; PULSE 92; RESP 12; TEMP 98.9
== END | disposition home or self-care (01) ==
LOC: BARWHC3 08:43
PROVIDERS: ATTEND Surgery Plastic and Reconstructive Surgery
DX: Z48.815 Encounter for surgical aftercare following surgery on the digestive system (principal)
CPT/HCPCS: 99211

== ENCOUNTER → 2022-03-07 | Outpatient (CLI) | payer BC ==
[2022-03-07 15:23] VITALS: BP 145/97; PULSE 91; TEMP 97.9; BMI 36.1
--- NOTE | 2022-03-07 15:40 | P.BASOAP ---
Subjective Progress Note Date: 03/07/22 Needs 75 gram protein daily. Needs labs. She is underpar for her protein. Recommend food diary journal. Pain is improving along the left upper. Objective - Vital Signs Vital signs: Vital Signs Temp 97.9 F 03/07/22 15:21 Pulse 91 03/07/22 15:21 Resp BP 145/97 03/07/22 15:21 Pulse Ox FiO2 Intake & Output 03/06/22 03/07/22 03/07/22 18:59 06:59 18:59 Weight 107.955 kg Assessment/Plan Plan: Date: 03/07/22 Initial Weight: 122.668 kg Initial BMI: 41.1 Current Weight: 107.955 kg Current BMI: 36.1 Type of Surgery: Total Volume in Band: Previous Volume: Volume Removed: Volume Added: Band Size:
[2022-03-07 16:33] LABS: INR 0.9 (<1.2); Partial Thromboplastin Time 25.3 sec (22.0-30.0); Prothrombin Time 10.3 sec (9.0-12.0)
[2022-03-07 23:34] LABS: HGB 14.5 g/dL (12.0-15.0); MCH 29.6 pg (27.0-32.0); MCHC 32.2 g/dL (32.0-37.0); MCV 91.8 fL (80.0-97.0); Mean Platelet Volume 13.9 fL (9.5-12.2); NRBC Per 100 WBC 0 /100 WBCS (0.0-0.0); Platelet Count 328 X 10*3/uL (140-440); RDW 14.6 % (11.5-14.5)
[2022-03-07 23:59] LABS: Chol/HDL Ratio 4.32 Ratio; LDL Cholesterol,Calculated 182.1 mg/dL (0.0-131.0); Prealbumin 24.5 mg/dL (18.0-42.0)
[2022-03-08 00:01] LABS: ALT 108 U/L (8-44); AST 64 U/L (13-35); Albumin 4.5 g/dL (3.8-4.9); Albumin/Globulin Ratio 1.89 (1.60-3.17); Alkaline Phosphatase 170 U/L (41-126); BUN/Creat Ratio 13.84 Ratio (12.00-20.00); Blood Urea Nitrogen 10.3 mg/dL (9.0-27.0); Calcium 10.1 mg/dL (8.7-10.3); Chloride 104 mmol/L (96-109); Ferritin 24.9 ng/mL (10.0-291.0); Globulin 2.4 g/dL (1.6-3.3); Glucose 86 mg/dL (70-110); Iron 50 ug/dL (50-170); Magnesium 2.4 mg/dL (1.5-2.4); Non-African American GFR(CKD) 86.3 (60.0-200.0); Potassium 4.3 mmol/L (3.5-5.5); Sodium 142 mmol/L (135-145); Total Iron Binding Capacity 469 ug/dL (228-460); Total Protein 6.9 g/dL (6.2-8.2)
[2022-03-08 13:25] LABS: Zinc, Serum 71 ug/dL (60-130)
[2022-03-09 06:14] LABS: Vitamin A 49 ug/dL (38-106)
[2022-03-09 12:59] LABS: Vit B1(Thiamine) 73 ug/L (38-122)
== END ==
LOC: BARWHC3 14:21
PROVIDERS: ATTEND Surgery Plastic and Reconstructive Surgery
DX: Z71.3 Dietary counseling and surveillance (principal); E66.01 Morbid (severe) obesity due to excess calories; Z68.36 Body mass index [BMI] 36.0-36.9, adult
CPT/HCPCS: 80053; 80061; 82306; 82525; 82607; 82728; 82746; 83036; 83540; 83550; 83735; 83970; 84100; 84134; 84255; 84425; 84443; 84590; 84630; 85027; 85610; 85730; 97803; 99211

== ENCOUNTER → 2022-05-23 | Outpatient (CLI) | payer BC ==
[2022-05-23 15:40] VITALS: BP 138/90; PULSE 103; RESP 13; TEMP 98.1
[2022-05-23 16:13] VITALS: BMI 35.9
--- NOTE | 2022-05-23 16:36 | P.BASOAP ---
Subjective Progress Note Date: 05/23/22 She wants to get down 180 pounds or 60 pounds weight loss. No moderate reflux. GGG for weight loss. Plan for diet. Objective - Vital Signs Vital signs: Vital Signs Temp 98.1 F 05/23/22 15:34 Pulse 103 H 05/23/22 15:34 Resp 13 05/23/22 15:34 BP 138/90 05/23/22 15:34 Pulse Ox FiO2 Intake & Output 05/22/22 05/23/22 05/23/22 18:59 06:59 18:59 Weight 107.076 kg Assessment/Plan Plan: Date: 05/23/22 Initial Weight: 122.668 kg Initial BMI: 41.1 Current Weight: 107.076 kg Current BMI: 35.9 Type of Surgery: Total Volume in Band: Previous Volume: Volume Removed: Volume Added: Band Size:
== END ==
LOC: BARWHC3 14:43
PROVIDERS: ATTEND Surgery Plastic and Reconstructive Surgery
DX: E66.01 Morbid (severe) obesity due to excess calories (principal); Z68.35 Body mass index [BMI] 35.0-35.9, adult
CPT/HCPCS: 97803; 99211

== ENCOUNTER → 2022-08-08 | Outpatient (CLI) | payer BC ==
[2022-08-08 16:55] LABS: INR 0.9 (<1.2); Partial Thromboplastin Time 24.2 sec (22.0-30.0); Prothrombin Time 9.8 sec (9.0-12.0)
[2022-08-08 20:33] LABS: HCT 43.8 % (37.2-46.3); HGB 13.5 g/dL (12.0-15.0); MCH 27.7 pg (27.0-32.0); MCHC 30.8 g/dL (32.0-37.0); MCV 89.8 fL (80.0-97.0); NRBC Per 100 WBC 0 /100 WBCS (0.0-0.0); Platelet Count 421 X 10*3/uL (140-440); RBC 4.88 X 10*6/uL (4.10-5.20); RDW 13.8 % (11.5-14.5); WBC 6.32 X 10*3/uL (4.50-10.00)
[2022-08-08 20:54] LABS: % Iron Saturation 7.28 (12.00-45.00); ALT 51 U/L (8-44); AST 35 U/L (13-35); African American GFR (CKD) 93.2 (60.0-200.0); Albumin 4.4 g/dL (3.8-4.9); Alkaline Phosphatase 134 U/L (41-126); BUN/Creat Ratio 22.07 Ratio (12.00-20.00); Blood Urea Nitrogen 17.3 mg/dL (9.0-27.0); Calcium 9.9 mg/dL (8.7-10.3); Carbon Dioxide 25.9 mmol/L (20.0-27.5); Chloride 101 mmol/L (96-109); Ferritin 11.2 ng/mL (10.0-291.0); Globulin 2.8 g/dL (1.6-3.3); Glucose 98 mg/dL (70-110); Iron 37 ug/dL (50-170); Magnesium 2.2 mg/dL (1.5-2.4); Non-African American GFR(CKD) 80.4 (60.0-200.0); Phosphorus 3.5 mg/dL (2.4-5.1); Potassium 4.3 mmol/L (3.5-5.5); Sodium 140 mmol/L (135-145); Total Iron Binding Capacity 512 ug/dL (228-460); Total Protein 7.2 g/dL (6.2-8.2)
[2022-08-08 21:03] LABS: Chol/HDL Ratio 3.84 Ratio; LDL Cholesterol,Calculated 182.2 mg/dL (0.0-131.0); Prealbumin 21.6 mg/dL (18.0-42.0)
[2022-08-09 13:59] LABS: Zinc, Serum 71 ug/dL (60-130)
[2022-08-10 06:25] LABS: Vitamin A 48 ug/dL (38-106)
[2022-08-10 07:02] LABS: Vit B1(Thiamine) 84 ug/L (38-122)
== END | disposition home or self-care (01) ==
LOC: LABWHC1 13:33
PROVIDERS: ATTEND Surgery Plastic and Reconstructive Surgery
DX: D50.8 Other iron deficiency anemias (principal); E89.1 Postprocedural hypoinsulinemia; E66.01 Morbid (severe) obesity due to excess calories; E44.0 Moderate protein-calorie malnutrition; E44.1 Mild protein-calorie malnutrition; E45 Retarded development following protein-calorie malnutrition; E46 Unspecified protein-calorie malnutrition; E55.9 Vitamin D deficiency, unspecified; K74.1 Hepatic sclerosis; K50.90 Crohn's disease, unspecified, without complications; N19 Unspecified kidney failure; T56.894A Toxic effect of other metals, undetermined, initial encounter
CPT/HCPCS: 36415; 80053; 80061; 82306; 82525; 82607; 82728; 82746; 83036; 83540; 83550; 83735; 83970; 84100; 84134; 84255; 84425; 84443; 84590; 84630; 85027; 85610; 85730

== ENCOUNTER → 2022-08-08 | Outpatient (CLI) | payer BC ==
[2022-08-08 15:18] VITALS: BP 147/99; PULSE 101; TEMP 98.2; BMI 35.9
--- NOTE | 2022-08-08 15:40 | P.BASOAP ---
Subjective Progress Note Date: 08/08/22 She reports reflux. She has epigastric pain. Omeprazole foe heartburn. Objective - Vital Signs Vital signs: Vital Signs Temp 98.2 F 08/08/22 15:16 Pulse 101 H 08/08/22 15:16 Resp BP 147/99 08/08/22 15:16 Pulse Ox FiO2 Intake & Output 08/07/22 08/08/22 08/08/22 18:59 06:59 18:59 Weight 107.048 kg Assessment/Plan Plan: Date: 08/08/22 Initial Weight: 122.668 kg Initial BMI: 41.1 Current Weight: 107.048 kg Current BMI: 35.9 Type of Surgery: Total Volume in Band: Previous Volume: Volume Removed: Volume Added: Band Size:
== END ==
LOC: BARWHC3 14:26
PROVIDERS: ATTEND Surgery Plastic and Reconstructive Surgery
DX: E66.01 Morbid (severe) obesity due to excess calories (principal); K21.9 Gastro-esophageal reflux disease without esophagitis; R10.13 Epigastric pain; Z68.35 Body mass index [BMI] 35.0-35.9, adult
CPT/HCPCS: 99211

== ENCOUNTER → 2023-02-13 | Outpatient (CLI) | payer BC ==
[2023-02-13 13:09] VITALS: PULSE 99; TEMP 98.2; BMI 38.1
[2023-02-13 13:30] VITALS: BP 145/96
--- NOTE | 2023-02-13 13:52 | P.BASOAP ---
Subjective Progress Note Date: 02/13/23 She has reflux. Her weight is going up. She is not using food journal. She has GERD and taking omeprazole. She is getting more weight. Its 1 year one. Labs needed. Refill for omeprazole. Labs are from 6 months. Objective - Vital Signs Vital signs: Vital Signs Temp 98.2 F 02/13/23 13:05 Pulse 99 02/13/23 13:05 Resp BP 145/96 02/13/23 13:05 Pulse Ox FiO2 Intake & Output 02/12/23 02/13/23 02/13/23 18:59 06:59 18:59 Weight 113.852 kg Assessment/Plan Plan: Date: 02/13/23 Initial Weight: 122.668 kg Initial BMI: 41.1 Current Weight: 113.852 kg Current BMI: 38.1 Type of Surgery: Total Volume in Band: Previous Volume: Volume Removed: Volume Added: Band Size:
[2023-02-13 15:23] LABS: INR 0.9 (<1.2); Partial Thromboplastin Time 24.2 sec (22.0-30.0)
[2023-02-13 19:41] LABS: % Iron Saturation 5.52 (12.00-45.00); ALT 30 U/L (8-44); AST 22 U/L (13-35); Albumin 4.3 d/dL (3.8-4.9); Albumin/Globulin Ratio 1.59 Ratio (1.60-3.17); Alkaline Phosphatase 111 U/L (41-126); BUN/Creat Ratio 21.29 Ratio (12.00-20.00); Blood Urea Nitrogen 14.9 mg/dL (9.0-27.0); Calcium 9.7 mg/dL (8.7-10.3); Carbon Dioxide 24.2 mmol/L (21.6-31.8); Chloride 103 mmol/L (96-109); Chol/HDL Ratio 3.78 Ratio; Ferritin 8.3 ng/mL (10.0-291.0); Globulin 2.7 d/dL (1.6-3.3); Glucose 98 mg/dL (70-110); Iron 27 UG/DL (50-170); Magnesium 2.1 mg/dL (1.5-2.4); Phosphorus 3.6 mg/dL (2.4-5.1); Potassium 4.7 mmol/L (3.5-5.5); Sodium 139 mmol/L (135-145); Total Bilirubin 0.3 mg/dL (0.3-1.2); Total Iron Binding Capacity 489 UG/DL (228-460); VLDL Calculation 19.94 mg/dL (5.00-40.00)
[2023-02-13 20:21] LABS: Prealbumin 20.4 mg/dL (18.0-42.0)
[2023-02-13 21:21] LABS: HCT 35.9 % (37.2-46.3); HGB 10.8 d/dL (12.0-15.0); MCHC 30.1 d/dL (32.0-37.0); MCV 83.1 FL (80.0-97.0); Mean Platelet Volume 12.1 FL (9.5-12.2); NRBC Per 100 WBC 0 X 10*3/uL (0.00-0.01); Platelet Count 506 X 10*3/uL (140-440); RBC 4.32 X 10*6/uL (4.10-5.20); RDW 16.1 % (11.5-14.5); WBC 7.62 X 10*3/uL (4.50-10.00)
[2023-02-14 07:46] LABS: LDL Cholesterol,Calculated 179.4 mg/dL (0.0-131.0)
[2023-02-15 07:08] LABS: Vitamin A 37 ug/dL (38-106)
[2023-02-15 11:14] LABS: Zinc, Serum 76 ug/dL (60-130)
[2023-02-15 12:16] LABS: Vit B1(Thiamine) 66 ug/L (38-122)
[2023-02-21 07:58] LABS: Selenium 118 mcg/L (63-160)
== END ==
LOC: BARWHC3 12:50
PROVIDERS: ATTEND Surgery Plastic and Reconstructive Surgery
DX: E66.01 Morbid (severe) obesity due to excess calories (principal); D50.8 Other iron deficiency anemias; D50.9 Iron deficiency anemia, unspecified; K91.2 Postsurgical malabsorption, not elsewhere classified; E44.0 Moderate protein-calorie malnutrition; E44.1 Mild protein-calorie malnutrition; E45 Retarded development following protein-calorie malnutrition; E55.9 Vitamin D deficiency, unspecified; K74.1 Hepatic sclerosis; N19 Unspecified kidney failure; T56.894A Toxic effect of other metals, undetermined, initial encounter
CPT/HCPCS: 36415; 80053; 80061; 82306; 82525; 82607; 82728; 82746; 83036; 83540; 83550; 83735; 83970; 84100; 84134; 84255; 84425; 84443; 84590; 84630; 85027; 85610; 85730; 99211

== ENCOUNTER 2024-01-20 07:56 | Day surgery (SDC) | payer MEDICARE ==
[2023-12-31 12:08] VITALS: BMI 37.4
--- NOTE | 2024-01-20 05:33 | P.GSHP ---
History of Present Illness H&P Date: 01/20/24 CHIEF COMPLAINT: GERD and colon screen HISTORY OF PRESENT ILLNESS: The patient is a 63-year-old female who presents with gastroesophageal reflux disease and need for colon screen. Upper and lower endoscopy were offered for further evaluation and management. PAST MEDICAL HISTORY: Please see list. PAST SURGICAL HISTORY: Please see list. MEDICATIONS: Please see list. ALLERGIES: Please see list. SOCIAL HISTORY: No illicit drug use FAMILY HISTORY: No reports of Crohn disease or ulcerative colitis. REVIEW OF ORGAN SYSTEMS: CONSTITUTIONAL: No reports of fevers or chills. GI: Denies any blood in stools or constipation. PHYSICAL EXAM: VITAL SIGNS: Stable GENERAL: Well-developed pleasant in no acute distress. HEENT: No scleral icterus. Extraocular movements grossly intact. Moist buccal mucosa. NECK: Supple without lymphadenopathy. CHEST: Unlabored respirations. Equal bilateral excursions. CARDIOVASCULAR: Regular rate and rhythm. Distal 2+ pulses. ABDOMEN: Soft, nondistended. MUSCULOSKELETAL: No clubbing, cyanosis, or edema. ASSESSMENT: 1. Gastroesophageal reflux disease 2. Colon screen. PLAN: 1. Recommend proceeding with an upper and lower endoscopy Past Medical History Past Medical History: Fibromyalgia, GERD/Reflux, Hyperlipidemia, Hypertension, Osteoarthritis (OA), Skin Disorder, Sleep Apnea/CPAP/BIPAP Additional Past Medical History / Comment(s): ANEMIA, hiatal hernia, psoriasis, Recently precribed CPAP- hasn't used it. "I have low iron with iron infusions." History of Any Multi-Drug Resistant Organisms: None Reported Past Surgical History: Adenoidectomy, Bariatric Surgery, Cholecystectomy, Hysterectomy, Orthopedic Surgery, Tonsillectomy Additional Past Surgical History / Comment(s): Right shoulder surgery for bone spurs, right knee arthroscopy, colonoscopy, EGD, hiatal hernia surgery with lysis of adhesions 11/20/21, robotic laprascopic gastric sleeve 02/05/22 Past Anesthesia/Blood Transfusion Reactions: No Reported Reaction, Motion Sickness Additional Past Anesthesia/Blood Transfusion Reaction / Comment(s): No hx of blood transfusions. Smoking Status: Former smoker, Vaper - Past Family History Mother Family Medical History: Cancer Additional Family Medical History / Comment(s): Lung cancer. Father Family Medical History: Deep Vein Thrombosis (DVT) Medications and Allergies Home Medications Medication Instructions Recorded Confirmed Type Cyclobenzaprine [Flexeril] 10 mg PO TID PRN 07/05/21 01/16/24 History DULoxetine HCL [Cymbalta] 60 mg PO QAM 07/05/21 01/16/24 History Gabapentin 300 mg PO TID 07/05/21 01/16/24 History Acetaminophen Tab [Tylenol] 1,000 mg PO Q6HR PRN #30 tablet 11/21/21 01/16/24 Rx Melatonin [Children's Melatonin 1 mg PO HS PRN 10/31/22 01/16/24 History Sleep Chew] Ibuprofen(Unknown Dose ) 1 dose PO Q8H PRN 12/31/23 01/16/24 History Insta-Flex(Unknown Dose) 1 dose PO QAM 12/31/23 01/16/24 History Omeprazole [PriLOSEC] 40 mg PO HS 12/31/23 01/16/24 History Valsartan/Hydrochlorothiazide 1 each PO QAM 12/31/23 01/16/24 History [Valsartan-Hctz 160-12.5 mg Tab] Woman's Multi Vitamin(Unknown 1 dose PO QAM 12/31/23 01/16/24 History Allergies Allergy/AdvReac Type Severity Reaction Status Date / Time No Known Allergies Allergy Verified 01/16/24 13:53
[2024-01-20] MEDS ORDERED: LIDOCAINE 1% (10MG/ML) FOR IV START INTRADERMA PRN (08:10)
[2024-01-20 08:15] VITALS: TEMP 97.3
[2024-01-20] MEDS: IV FLUID CONTINUATION 1,000 ML IV ONE (08:38)
[2024-01-20] MEDS: LACTATED RINGERS 1,000 ML IV SCH (08:39)
[2024-01-20] MEDS ORDERED: PROPOFOL 10 MG/ML 20 ML VIAL IV ONE (09:06)
[2024-01-20] MEDS ORDERED: LIDOCAINE 1% INJ 10MG/ML (20 ML MDV) ONE (09:06)
--- NOTE | 2024-01-20 09:30 | P.PCN ---
Date of Procedure: 01/20/24 Description of Procedure: PREOPERATIVE DIAGNOSIS: Gastroesophageal reflux disease. Morbid obesity. 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 Gastritis. Diaphragmatic hiatal hernia, recurrent History of sleeve gastrectomy OPERATION: Esophagogastroduodenoscopy with biopsies along antrum and duodenum Esophagogastroduodenoscopy with ablation of arteriovenous malformation using ERBE SURGEON: Dariela Manzanares MD ANESTHESIA: MAC. INDICATIONS: The patient is a 63-year-old female who presents with dysphagia and reflux disease. Benefits and risks of the procedure were described. Informed consent was obtained. DESCRIPTION: The patient was brought into the endoscopy suite and laid in the left lateral decubitus position. An Olympus gastroscope was passed along the posterior oropharynx down to the distal esophagus where the squamocolumnar junction was encountered at 35 cm from the incisors. The stomach was entered and no bile reflux was found. Additional findings are listed below. Biopsies with cold forceps were obtained of the antrum. The first through third portion of the duodenum was examined. Retroflexion of the scope confirmed Hill grade 3 lower esophageal valve. The squamocolumnar junction demonstrated LA grade B erosive esophagitis. The stomach was desufflated. The patient tolerated the procedure well. FINDINGS: Squamocolumnar junction 35 cm from the incisors. Diaphragmatic hiatus at 38 cm. Hiatal hernia, 3 cm, recurrent Presence of sleeve gastrectomy, moderately dilated without encroachment angular incisura or abnormal contour Hill grade 3 lower esophageal valve. LA grade D erosive esophagitis with erosions 2 cm Biopsies obtained of the duodenum. Chronic gastritis with biopsies obtained. Arteriovenous malformation x 2, upper stomach ablated using ERBE RECOMMENDATIONS: Repeat upper endoscopy in 6 months to 1 year for Arrington's esophagus
--- NOTE | 2024-01-20 09:51 | P.PCN ---
Date of Procedure: 01/20/24 Description of Procedure: PREOPERATIVE DIAGNOSIS: Personal history colon polyp Colonoscopy screening POSTOPERATIVE DIAGNOSIS: Tubular adenoma cecum Tubular adenoma rectum Sigmoid diverticulosis Internal hemorrhoids, grade 2 OPERATION: Colonoscopy to the ileocecal valve and appendiceal orifice, cecum Colonoscopy with hot snare polypectomy SURGEON: Dariela Manzanares MD. ANESTHESIA: MAC. INDICATIONS: The patient is an 63-year-old male who personal history of colon polyps. Last colonoscopy 5 years. Benefits and risks were described and informed consent was obtained. DESCRIPTION OF PROCEDURE: The patient had undergone Sutab prep. The patient had been brought into the operating room and laid in the left lateral decubitus position. After adequate intravenous sedation, the rectum was examined with 2% lidocaine jelly. The prostate was unremarkable. External hemorrhoids were encountered. The rectal tone was within normal limits. No lesions were palpated in the rectal vault. An Olympus colonoscope was advanced until the cecum, ileocecal valve and appendiceal orifice were clearly viewed. The prep was good. Sigmoid diverticulosis was encountered. Colonic polyps were found and removed. No evidence of focal colitis was found. Retroflexion of the scope demonstrated grade 2 internal hemorrhoids without active bleeding or inflammation. The colon was desufflated. The patient had tolerated the procedure well. Withdrawal time was over 6 minutes. FINDINGS: Aronchick preparation quality scale 2 (1-5) Internal hemorrhoids, grade 2 External hemorrhoids, grade 2. No arteriovenous malformations. Moderate sigmoid diverticulosis redundant sigmoid colon requiring abdominal pressure Sigmoid diverticulosis Removal of 2 polyps: - Snare polypectomy 10 cm from the anal verge, 5 mm tubulovillous adenoma - Snare polypectomy cecum, 8 mm flat villous adenoma No focal colitis. RECOMMENDATIONS: Repeat colonoscopy 3 years, 2026 Plan - Discharge Summary Discharge Rx Participant: No New Discharge Prescriptions: Continue DULoxetine HCL [Cymbalta] 60 mg PO QAM Acetaminophen Tab [Tylenol] 1,000 mg PO Q6HR PRN #30 tablet PRN Reason: Pain Valsartan/Hydrochlorothiazide [Valsartan-Hctz 160-12.5 mg Tab] 1 each PO QAM Omeprazole [PriLOSEC] 40 mg PO HS Woman's Multi Vitamin(Unknown 1 dose PO QAM Gabapentin 300 mg PO TID Cyclobenzaprine [Flexeril] 10 mg PO TID PRN PRN Reason: Pain Melatonin [Children's Melatonin Sleep Chew] 1 mg PO HS PRN PRN Reason: sleep Insta-Flex(Unknown Dose) 1 dose PO QAM Ibuprofen(Unknown Dose ) 1 dose PO Q8H PRN PRN Reason: Pain Discharge Medication List Cyclobenzaprine [Flexeril] 10 mg PO TID PRN 07/05/21 [History] DULoxetine HCL [Cymbalta] 60 mg PO QAM 07/05/21 [History] Gabapentin 300 mg PO TID 07/05/21 [History] Acetaminophen Tab [Tylenol] 1,000 mg PO Q6HR PRN #30 tablet 11/21/21 [Rx] Melatonin [Children's Melatonin Sleep Chew] 1 mg PO HS PRN 10/31/22 [History] Ibuprofen(Unknown Dose ) 1 dose PO Q8H PRN 12/31/23 [History] Insta-Flex(Unknown Dose) 1 dose PO QAM 12/31/23 [History] Omeprazole [PriLOSEC] 40 mg PO HS 12/31/23 [History] Valsartan/Hydrochlorothiazide [Valsartan-Hctz 160-12.5 mg Tab] 1 each PO QAM 02/12 [History] Woman's Multi Vitamin(Unknown 1 dose PO QAM 12/31/23 [History] Follow up Appointment(s)/Referral(s): Dariela Manzanares MD [STAFF PHYSICIAN] - 02/05/24 2:00 pm Patient Instructions/Handouts: Diverticulosis (GEN), Diverticulosis Diet (GEN), Colorectal Polyps (GEN) Activity/Diet/Wound Care/Special Instructions: Repeat colonoscopy 3 years, 2026 Discharge Disposition: HOME SELF-CARE
[2024-01-20 10:18] VITALS: BP 121/81; PULSE 69; RESP 20
== END 2024-01-20 10:46 | disposition home or self-care (01) ==
LOC: ORWHC2ENDO 07:56
PROVIDERS: ATTEND Surgery Plastic and Reconstructive Surgery
DX: Z12.11 Encounter for screening for malignant neoplasm of colon (principal); D12.0 Benign neoplasm of cecum; K62.1 Rectal polyp; K57.30 Diverticulosis of large intestine without perforation or abscess without bleeding; K64.1 Second degree hemorrhoids; K64.4 Residual hemorrhoidal skin tags; K31.811 Angiodysplasia of stomach and duodenum with bleeding; K21.00 Gastro-esophageal reflux disease with esophagitis, without bleeding; K29.51 Unspecified chronic gastritis with bleeding; K29.01 Acute gastritis with bleeding; K44.9 Diaphragmatic hernia without obstruction or gangrene; E66.01 Morbid (severe) obesity due to excess calories; M79.7 Fibromyalgia; E78.5 Hyperlipidemia, unspecified; I10 Essential (primary) hypertension; M19.90 Unspecified osteoarthritis, unspecified site; G47.30 Sleep apnea, unspecified; Z86.010 Personal history of colon polyps; Z90.49 Acquired absence of other specified parts of digestive tract; Z79.899 Other long term (current) drug therapy; Z68.38 Body mass index [BMI] 38.0-38.9, adult; Z80.1 Family history of malignant neoplasm of trachea, bronchus and lung
CPT/HCPCS: 43239; 43270; 45385; 88305

== ENCOUNTER → 2024-01-29 | Outpatient (CLI) | payer MEDICARE ==
[2024-01-29 14:38] VITALS: BP 131/83; PULSE 93; RESP 16; TEMP 97.8; BMI 39.0
--- NOTE | 2024-01-29 15:05 | P.BASOAP ---
Subjective Progress Note Date: 01/29/24 Has recurrent reflux. Needs omeprazole. Will add 90 tabs. May need bypass if medications not helpful. COlon reviewed with polyp and FU in 3 years. TSH check. Chol 292 and needs med from PCP. Objective - Vital Signs Vital signs: Vital Signs Temp 97.8 F 01/29/24 14:32 Pulse 93 01/29/24 14:32 Resp 16 01/29/24 14:32 BP 131/83 01/29/24 14:32 Pulse Ox FiO2 Intake & Output 01/28/24 01/29/24 01/29/24 18:59 06:59 18:59 Weight 116.573 kg Assessment/Plan Plan: Date: 01/29/24 Initial Weight: 122.668 kg Initial BMI: 41.1 Current Weight: 116.573 kg Current BMI: 39.0 Type of Surgery: Total Volume in Band: Previous Volume: Volume Removed: Volume Added: Band Size:
== END | disposition home or self-care (01) ==
LOC: BARWHC3 13:44
PROVIDERS: ATTEND Surgery Plastic and Reconstructive Surgery
DX: E66.01 Morbid (severe) obesity due to excess calories
CPT/HCPCS: 99211

== ENCOUNTER → 2024-10-14 | Outpatient (CLI) | payer MEDICARE ==
[2024-10-14 14:55] VITALS: BP 124/79; PULSE 80; RESP 16; TEMP 98.2; BMI 38.6
--- NOTE | 2024-10-14 15:46 | P.BASOAP ---
Subjective Progress Note Date: 10/14/24 Comes in with maintained weight. 257 - 254 pounds. She has heartburn. She is taking omeprazole. She wants OMeprazole for refills. OMeprazole sent for 1 year supply. No food journal. She wants to get to 180 pounds. Check vitamins level. Objective - Vital Signs Vital signs: Vital Signs Temp 98.2 F 10/14/24 14:52 Pulse 80 10/14/24 14:52 Resp 16 10/14/24 14:52 BP 124/79 10/14/24 14:52 Pulse Ox FiO2 Intake & Output 10/13/24 10/14/24 10/14/24 18:59 06:59 18:59 Weight 115.212 kg Assessment/Plan Plan: Date: 10/14/24 Initial Weight: 122.668 kg Initial BMI: 41.1 Current Weight: 115.212 kg Current BMI: 38.6 Type of Surgery: Vertical Sleeve Gastrectomy Total Volume in Band: Previous Volume: Volume Removed: Volume Added: Band Size:
[2024-10-15 02:30] LABS: HCT 40.9 % (37.2-46.3); HGB 12.9 g/dL (12.0-15.0); MCH 30.9 pg (27.0-32.0); MCHC 31.5 g/dL (32.0-37.0); MCV 97.8 FL (80.0-97.0); Mean Platelet Volume 12.6 FL (9.5-12.2); NRBC Per 100 WBC 0 X 10*3/uL (0.00-0.01); Platelet Count 378 X 10*3/uL (140-440); RBC 4.18 X 10*6/uL (4.10-5.20); RDW 14.9 % (11.5-14.5); WBC 9.49 X 10*3/uL (4.50-10.00)
[2024-10-15 03:09] LABS: Prealbumin 23.8 mg/dL (18.0-42.0)
[2024-10-15 03:11] LABS: % Iron Saturation 31.58 (12.00-45.00); ALT 48 U/L (8-44); AST 23 U/L (13-35); Albumin/Globulin Ratio 1.74 Ratio (1.60-3.17); Alkaline Phosphatase 84 U/L (41-126); BUN/Creat Ratio 27.14 Ratio (12.00-20.00); Calcium 9.3 mg/dL (8.7-10.3); Chloride 106 mmol/L (96-109); Chol/HDL Ratio 3.58 Ratio; Globulin 2.3 g/dL (1.6-3.3); Glucose 104 mg/dL (70-110); Iron 114 UG/DL (50-170); LDL Cholesterol,Calculated 154.9 mg/dL (0.0-131.0); Phosphorus 2.8 mg/dL (2.4-5.1); Potassium 3.8 mmol/L (3.5-5.5); Sodium 147 mmol/L (135-145); Total Bilirubin 0.3 mg/dL (0.3-1.2); Total Iron Binding Capacity 361 UG/DL (228-460); Total Protein 6.3 g/dL (6.2-8.2)
[2024-10-15 10:57] LABS: Zinc, Serum 64 ug/dL (60-130)
[2024-10-16 06:11] LABS: Vitamin A 58 ug/dL (38-106)
== END ==
LOC: BARWHC3 14:28
PROVIDERS: ATTEND Surgery Plastic and Reconstructive Surgery
DX: E66.01 Morbid (severe) obesity due to excess calories (principal); D50.8 Other iron deficiency anemias; K91.2 Postsurgical malabsorption, not elsewhere classified; Z68.38 Body mass index [BMI] 38.0-38.9, adult
CPT/HCPCS: 80053; 80061; 82306; 82525; 82607; 82728; 82746; 83036; 83540; 83550; 83735; 83970; 84100; 84134; 84255; 84425; 84443; 84590; 84630; 85027; 85730; 99211